=== PATIENT | male | born 1975 | race Caucasian/White ===

== ENCOUNTER 2024-09-21 07:19 | Emergency (ER) | payer SELFPAY ==
[2024-09-21 07:10] VITALS: BP 150/100; PULSE 104; RESP 18; TEMP 36.4; O2SAT 98
[2024-09-21 07:20] VITALS: BP 121/75; PULSE 97; RESP 20; O2SAT 100
--- NOTE | 2024-09-21 07:31 | ED.ALCOHOL ---
HPI - Alcohol General Chief Complaint: Alcohol Stated Complaint: ETOH PROBLEMS Source: patient and EMS Mode of arrival: EMS Limitations: no limitations History of Present Illness HPI narrative: 49 years old white male came to the ED by ambulance from home because been drinking too much. He denies other symptoms. Patient denies any suicidal or homicidal ideation. Patient requested to go home, is feeling okay, is telling me this was a mistake to come to the ED, Patient denies any fever, chills, nausea, vomiting, abdominal pain, chest pain, shortness of breath. Currently feeling much better and like to go home. Review of Systems Review of Systems: All systems reviewed & are unremarkable except as noted in HPI and below Exam Narrative: General appearance: Well-developed, well-nourished Skin: Normal color Head: Normocephalic, nontraumatic Eyes: Clear conjunctiva ENT: Oropharynx normal, ears normal, nose normal Neck: Supple, nontender Chest and respiratory: Airway patent, no respiratory distress, no accessory muscle use Heart: Regular rate/rhythm Abdomen: Soft, nontender, no organomegaly, quiet bowel sounds Vascular: Normal peripheral pulses, normal capillary refill. Musculoskeletal: Normal range of motion, nontender back Neurologic: Alert and oriented ?3, INDUSTRIAL MAINTENANCE INSTRUCTOR is normal as tested, no gross motor deficit MDM - Alcohol MDM Narrative Medical decision making narrative: Patient came to the ED because of history of alcoholism and would like to stop Vital signs are stable Physical examination showing that patient awake, alert oriented x4. Patient declined blood workup or imaging or further evaluation and would like to go home. Differential Diagnosis Differential diagnosis: Likely other Medical Records Medical records narrative: Alcoholism Lab Data 09/21/24 07:27 09/21/24 07:27 Labs: Lab Results 09/21/24 Range/Units 07:27 WBC Pending RBC Pending Hgb Pending Hct Pending MCV Pending MCH Pending MCHC Pending RDW Pending Plt Count Pending MPV Pending Immature Gran % (Auto) Pending Neut % (Auto) Pending Lymph % (Auto) Pending Troup % (Auto) Pending Eos % (Auto) Pending Baso % (Auto) Pending Lymph # (Auto) Pending Troup # (Auto) Pending Eos # (Auto) Pending Baso # (Auto) Pending Abs Immat Gran (auto) Pending Absolute Neuts (auto) Pending Absolute Nucleated RBC Pending Nucleated RBC % Pending Sodium Pending Potassium Pending Chloride Pending Carbon Dioxide Pending Anion Gap Pending BUN Pending Creatinine Pending Estim Creat Clear Calc Pending Estimated GFR Pending Glucose Pending Calcium Pending Total Bilirubin Pending AST Pending ALT Pending Alkaline Phosphatase Pending Total Protein Pending Albumin Pending TSH (Reflex) Pending Ethyl Alcohol Pending Critical Care Time Critical Care Time Critical Care Time: No Discharge Plan Discharge Clinical Impression: Alcoholism Patient Disposition: Home Condition: Stable Instructions: Alcohol Dependence (ED) Additional Instructions: Return if symptoms are worsening , call your family physician for appointment, take Tylenol as as needed for aches and pain, continue home medications. Patient Language: Maori Follow-up/Referrals: UNKNOWN,DOCTOR [Primary Care Provider] -
[2024-09-21 07:32] LABS: Basophils Absolute Auto 0.2 K/mm3 (0.0-0.1); Basophils Percent Auto 2.2 % (0.2-1.2); Eosinophils Absolute Auto 0.3 K/mm3 (0-0.3); Eosinophils Percent Auto 4.3 % (0-4.4); Hematocrit 47.8 % (42.0-52.0); Hemoglobin 16.2 g/dL (14.0-18.0); Immature Granulocyte Absolute 0.03 K/mm3 (0.00-0.031); Immature Granulocyte Percent A 0.4 % (0-0.5); Lymphocytes Absolute Auto 1.97 K/mm3 (0.9-3.2); Lymphocytes Percent Auto 29.3 % (18.3-44.2); Mean Corpuscular HGB Conc 33.9 g/dl (32-36); Mean Corpuscular Hemoglobin 30.7 pg (26-34); Mean Corpuscular Volume 90.5 fl (80-100); Mean Platelet Volume 8.9 fl (7.4-10.4); Monocytes Absolute Auto 0.5 K/mm3 (0.1-0.6); Neutrophils Absolute Auto 3.8 K/mm3 (1.3-6.7); Neutrophils Percent Auto 55.8 % (45.5-73.1); Platelet Count Result 357 k/mm3 (150-375); Red Blood Count 5.28 M/mm3 (4.6-6.20); Red Cell Distribution Width 16.5 % (11.5-14.5); White Blood Count 6.7 K/mm3 (4.5-10.0)
[2024-09-21 07:41] LABS: Alanine Aminotransferase 132 U/L (6-50); Albumin Level 4.3 g/dL (3.5-5.1); Alkaline Phosphatase 142 U/L (38-126); Anion Gap 14 mmol/L (4-12); Aspartate Amino Transferase 67 U/L (17-59); Bilirubin,Total 0.8 mg/dL (0.2-1.3); Blood Urea Nitrogen 9 mg/dL (9-20); Calcium 8.4 mg/dL (8.4-10.2); Carbon Dioxide 26 mmol/L (22-30); Chloride 101 mmol/L (98-107); Estimated CRCL calculation 111 ml/min; Estimated Glomerular Filt Rate > 60; Glucose 208 mg/dL (65-110); Potassium 3.2 mmol/L (3.4-5.0); Sodium 141 mmol/L (137-145)
--- OUTSIDE RECORDS SUMMARY | 2024-09-21 07:53 | XMS_ITS | Referral Summary ---
Author Organization [facility] Virtual Care Address [address] [place] [address] Phone Care Team Providers Care Telemetry Tech Name Role Phone Kenneth Mcduffie DO Primary Care Provider [phone] Allergies No known active allergies Medications pantoprazole DR (PROTONIX) 20 mg EC tablet Take 1 tablet (20 mg total) by mouth daily 30 tablet 3 Active chlordiazePOXIDE (LIBRIUM) 25 mg capsule Take 1 capsule (25 mg total) by mouth 3 (three) times a day as needed for withdrawal symptoms 9 capsule 3 Active ondansetron ODT (ZOFRAN-ODT) 4 mg disintegrating tablet Take 1 tablet (4 mg total) by mouth every 8 (eight) hours as needed for nausea or vomiting 20 tablet 3 Active Social History Tobacco Use Types Packs/Day Years Used Date Smoking Tobacco: Every Day Cigarettes Tobacco Cessation:Ready to Q uit: Not Asked; Counseling Given: Not Answered Personal Safety Answer Date Recorded Getting School Help Needed Not on file 07/28 Sex and Gender Information Value Date Recorded Sex Assigned at Not on file Legal Sex Male 2:33 AM CARVER HAND Gender Identity Not on file Sexual Orientation Not on file Last Filed Vital Signs Vital Sign Reading Time Taken Comments Blood Pressure 120/70 07/20/2022 8:00 PM CARVER HAND Pulse 97 07/20/2022 9:05 PM CARVER HAND Temperature 36.9 C (98.5 F) 07/20/2022 4:40 PM CARVER HAND Respiratory Rate 22 07/20/2022 8:45 PM CARVER HAND Oxygen Saturation 98% 07/20/2022 9:05 PM CARVER HAND Inhaled Oxygen Concentration - - Weight 93.9 kg (207 lb) 07/20/2022 4:40 PM CARVER HAND Height 175.3 cm (5' 9 ) 07/20/2022 4:40 PM CARVER HAND Body Mass Index 30.57 07/20/2022 4:40 PM CARVER HAND Plan of Treatment Not on file Insurance [employer] [facility] [employer] Care Teams Telemetry Tech Relationship Specialty Start Date End Date Kenneth Mcduffie DO PCP - General Family Medicine 07/20/22
--- OUTSIDE RECORDS SUMMARY | 2024-09-21 07:53 | XMS_ITS | Encounter Summary ---
Author Organization [facility] Address [address] [place] [address] Care Team Providers Care Water Pollution Control Inspector Name Role Phone Kenneth Mcduffie DO Primary Care Provider + Encounter Details Date Type Department Care Team (Late st Contact Info) Description 01/30/2002 Outpatient Historical [facility] Medicine [address] [place] [phone] Gurinder Elkins DO [address] [facility] [place] [phone] Social History Tobacco Use Types Packs/Day Years Used Date Smoking Tobacco: Never Assessed Sex and Gender Information Value Date Recorded Sex Assigned at Not on file Legal Sex Male 2:42 AM CABLE MOCK UP ASSEMBLER Gender Identity Not on file Sexual Orientation Not on file documented as of this encounter Plan of Treatment Not on file documented as of this encounter Visit Diagnoses Not on filedocumented in this encounter Additional Health Concerns Infection Onset Date Last Indicated Resolved Time COVID-19 04/11/2020 04/11/2020 05/11/2020 1:16 AM CABLE MOCK UP ASSEMBLER documented as of this encounter Care Teams Water Pollution Control Inspector Relationship Specialty [place] [address] [place] [address] PCP - General Family Practice 12/01/22 documented as of this encounter
--- OUTSIDE RECORDS SUMMARY | 2024-09-21 07:53 | XMS_ITS | Clinical Summary ---
Author Organization [facility] Address [address] [place] [address] Care Team Providers Care Is/It Project Manager Name Role Phone Kenneth Mcduffie DO Primary Care Provider + Allergies No known active allergies Medications QUEtiapine (SEROquel) 50 mg tabletIndicatio ns:Anxiety state,Alcoholis m in recovery ([facility]) TK 1 T PO QHS. All future fills will be through psychiatry. Only use if on cpap. 30 Tablet 09/19/2017 Active vortioxetine (Trintellix) 10 mg tablet Take 5 mg by mouth daily. Active gabapentin (NEURONTIN) 300 mg capsule Take 300 mg by mouth 3 times daily. Active lisinopriL (PRINIVIL) 10 mg tablet Take 10 mg by mouth daily. Active pantoprazole (PROTONIX) 20 mg Tablet, Delayed Release (E.C.) Take 20 mg by mouth daily. 07/20/2022 Active Active Problems Problem Noted Date Diagnosed Date Depression 12/01/2022 Insomnia 12/01/2022 Anxiety 12/01/2022 HTN (hypertension) 12/01/2022 Acute alcoholic gastritis with hemorrhage 2022 No-show for appointment 12/23/2021 Major depressive disorder, recurrent episode, mi ld 05/24/2019 Benign hypertension 02/26/2015 Alcohol abuse 06/21/2014 NIRMALA on CPAP 12/31/2013 Tobacco use disorder 11/25/2011 Resolved Problems Problem Noted Date Diagnosed Date Resolved Date Alcoholism in recovery 06/19/201505/24 Alcoholism in remission 02/26/2015 01/0 01/2020 H/O alcohol abuse 06/27/2012 03/04/2014 Anxiety state 11/25/2011 05/24/2019 ETOH abuse 11/25/2011 06/27/2012 Immunizations Immunization Administration Dates Next Due (ADACEL/BOOSTRIX)(10 YR UP) TDAP VACCINE, 0.5ML, IM 12/25/2013 Influenza Seasonal Unspecifi ed Formulation IM 02/13/2017,03/16/2015,02/13/2014 Family History Medical History Relation Name Comments Healthy Brother Healthy Father Healthy Mother Heart Disease Mother Healthy Sister Relation Name Status Comments Brother Alive Father Alive Mother Alive Sister Alive Social History Tobacco Use Types Packs/Day Years Used Date Smoking Tobacco: Every Day Cigarettes 2 20 Tobacco Cessation:Ready to Q uit: No Alcohol Use Standard Drinks/Week Comments Never 0 (1 standard drink = 0.6 oz pure alcohol) sober x 5 months then relapse on new years Feeling Safe Answer Date Recorded Are you in a relationship wi th someone who hurts you emotionally and/or physically? 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 Gender Identity Not on file Sexual Orientation Not on file Occupation Industry Job Start Date Job End Date Not on file Not on file Not on file Not on file Last Filed Vital Signs Vital Sign Reading Time Taken Comments Blood Pressure 124/75 12/02/2022 4:25 AM CDT Pulse 82 12/02/2022 4:25 AM CDT Temperature 37 C (98.6 F) 12/02/2022 4:25 AM CDT Respiratory Rate 19 12/01/2022 5:18 PM CDT Oxygen Saturation 100% 12/02/2022 4:25 AM CDT Inhaled Oxygen Concentration - - Weight 93.9 kg (207 lb) 12/01/2022 10:52 AM CDT Height 175.3 cm (5' 9 ) 12/01/2022 10:52 AM CDT Body Mass Index 30.57 12/01/2022 10:52 AM CDT Plan of Treatment Health Maintenance Due Date Last Done Comments HEPATITIS B VACCINES (1 of 3 - 19+ 3-dose series) 1993 COLORECTAL SCREENING 2019 Colorectal Cancer Screening 2019 FIT-DNA Q 3 years 2019 FIT/FOBT Q 1 year 2019 Flex Sig/CT Colonography Q 5 years 2019 INFLUENZA VACCINE (#1) 2023 7, 03/16/2015, 02/13/2014 DTAP/TDAP/TD VACCINES (2 - T d or Tdap) 12/26/2023 12/25/2013 ZOSTER VACCINE (1 of 2) 2024 Insurance [facility] [employer] [facility] [address] [facility] Advance Directives For more information, please contact: [phone] * Full Code (Latest Code Status on File) Date Activated Date Inactivated Comments 12/01/2022 2:55 PM 12/02/2022 11:15 AM * Full Code Date Activated Date Inactivated Comments 05/23/2019 1:47 PM 05/24/2019 3:13 PM Care Teams Is/It Project Manager Relationship Specialty [place] [address] [place] [address] PCP - General Family Practice 12/01/22
--- OUTSIDE RECORDS SUMMARY | 2024-09-21 07:53 | XMS_ITS | Clinical Summary ---
Author Organization [facility] Virtual Care Address [address] [place] [address] Phone Care Team Providers Care Non Ferrous Material Handler Name Role Phone Kenneth Mcduffie DO Primary Care Provider [phone] Allergies No known active allergies Medications pantoprazole [...] nausea or vomiting 20 tablet 3 Active Medical History Medical History Date Comments Hypertension Social History Tobacco Use Types Packs/Day Years Used Date Smoking Tobacco: Every Day Cigarettes Tobacco Cessation:Ready to Q uit: Not Asked; Counseling Given: Not Answered Personal Safety Answer Date Recorded Getting School Help Needed Not on file 07/28 Sex and Gender Information Value Date Recorded Sex Assigned at Not on file Legal Sex Male 2:33 AM UNDERCAR SPECIALIST Gender Identity Not on file Sexual Orientation Not on file Obstetrics History Last Filed Vital Signs Vital Sign Reading Time Taken Comments Blood Pressure 120/70 07/20/2022 8:00 PM UNDERCAR SPECIALIST Pulse 97 07/20/2022 9:05 PM UNDERCAR SPECIALIST Temperature 36.9 C (98.5 F) 07/20/2022 4:40 PM UNDERCAR SPECIALIST Respiratory Rate 22 07/20/2022 8:45 PM UNDERCAR SPECIALIST Oxygen Saturation 98% 07/20/2022 9:05 PM UNDERCAR SPECIALIST Inhaled Oxygen Concentration - - Weight 93.9 kg (207 lb) 07/20/2022 4:40 PM UNDERCAR SPECIALIST Height 175.3 cm (5' 9 ) 07/20/2022 4:40 PM UNDERCAR SPECIALIST Body Mass Index 30.57 07/20/2022 4:40 PM UNDERCAR SPECIALIST Plan of Treatment Health Maintenance Due Date Last Done Comments Colon Cancer Screening-Colonoscopy 1974 Depression Screening 1974 Hepatitis C Screening 1974 Prostate Cancer Screening-PSA 1974 Hepatitis B Screening 1992 Regular Well Visit/Exam 18-64 1992 Pneumococcal vaccine <65 (1 of 2 - PCV) 1993 DTaP/Tdap/Td Vaccine (2 - Td or Tdap) 12/26/2023 12/25/2013 Covid-19 Vaccine (3 - 2023-2 5 season) 2024 01/16/2021, 12/10/2020 Zoster Vaccine (1 of 2) 2024 Influenza Vaccine (Season Ended) 2025 04/15/2020, 03/30/2019, 03/01/2018, Additional history exists Insurance [facility] CHOICE OOS [facility] CHOICE OOS [facility] Address: [facility] [id number] [place] [address] Care Teams Non Ferrous Material Handler Relationship Specialty Start Date End Date Kenneth Mcduffie DO PCP - General Family Medicine 07/20/22
--- OUTSIDE RECORDS SUMMARY | 2024-09-21 07:53 | XMS_ITS | Clinical Summary ---
Author Organization [facility] [employer] Address [address] [place] [address] Care Team Providers Care Surg Tech Name Role Phone Lilliam Mary Primary Care Provider [phone] Source Comments [facility] [employer],non-owned Affiliates and Associated Physician Practices is amultiple site organization consisting of ambulatory clinics and hospital sitesin [place], [place], [place] and [place]. This disclosure is being madepursuant to the Care Everywhere program and may not contain all information available regarding this patient. Last updated 18.[facility] [employer] Allergies No known active allergies Medications * Be aware that medications may not be up to date on this document. Alwaysverify current medications with the patient. lisinopril (PRINIVIL; ZESTRIL) 10 MG tablet Take 10 mg by mouth once daily Active buPROPion (WELLBUTRIN) 100 MG tablet Take 150 mg by mouth once daily Active vortioxetine (TRINTELLIX) 10 MG tablet Take 10 mg by mouth once daily Active folic acid (FOLVITE) 1 MG tablet Take 1 mg by mouth once daily Active thiamine (VITAMIN B-1) 100 MG tablet Take 100 mg by mouth once daily Active QUEtiapine (SEROQUEL) 50 MG tablet Take 50 mg by mouth at bedtime 1-2 tabs at bedtime Active pantoprazole EC (PROTONIX) 40 MG tablet Take 40 mg by mouth once daily Active Social History Tobacco Use Types Packs/Day Years Used Date Smoking Tobacco: Every Day Cigarettes Smokeless Tobacco: Never Tobacco Cessation:Ready to Q uit: Not Asked; Counseling Given: Not Answered Alcohol Use Standard Drinks/Week Comments Yes 0 (1 standard drink = 0.6 oz pure alcohol) aylin and coke daily, with shots of fire ball AUDIT-C Answer Date Recorded Q1: How often do you have a drink containing alcohol? 4 or more times a week 03/04/2024 Q2: How many drinks containi ng alcohol do you have on a typical day when you are drinking? 10 or more Q3: How often do you have si x or more drinks on one occasion? Daily or almost daily 03/04/2024 Sex and Gender Information Value Date Recorded Sex Assigned at Not on file Legal Sex Male 3:26 PM CDT Gender Identity Not on file Sexual Orientation Not on file Last Filed Vital Signs Vital Sign Reading Time Taken Comments Blood Pressure 139/95 03/04/2024 1:16 PM CDT Pulse 90 03/04/2024 1:16 PM CDT Temperature 36.7 C (98.1 F) 03/04/2024 10:50 AM CDT Respiratory Rate 8 03/04/2024 1:16 PM CDT Oxygen Saturation 98% 03/04/2024 1:16 PM CDT Inhaled Oxygen Concentration - - Weight 91.2 kg (201 lb) 02/27/2024 4:44 PM CDT Height 177.8 cm (5' 10 ) 02/27/2024 4:44 PM CDT Body Mass Index 28.84 02/27/2024 4:44 PM CDT Plan of Treatment Health Maintenance Due Date Last Done Comments COLOGUARD (AGES 45-75) - COLON CA SCREENING 1974 COLON MONITORING 1974 COLONOSCOPY - COLON CA SCREENING 1974 CT COLONOGRAPHY - COLON CA SCREENING 1974 Colorectal Cancer Screening 1974 FIT - COLON CA SCREENING 1974 FLEX SIG - COLON CA SCREENING 1974 HIV SCREENING 1989 HEPATITIS C SCREENING 03/21/1992 DTAP/TDAP/TD VACCINES (1 - Tdap) 1993 HEPATITIS B VACCINE (1 of 3 - 19+ 3-dose series) 1993 PNEUMOCOCCAL VACCINE 50+ (1 of 2 - PCV) 1993 COVID-19 VACCINE (3 - season) 2024 01/16/2021, 12/10/2020 ZOSTER VACCINE (1 of 2) 2024 DEPRESSION SCREENING 05/16/2024 INFLUENZA VACCINE (Season Ended) 2025 02/02/2022, 04/15/2020, 03/30/2019, Additional history exists LIPID TESTING 12/03/2027 12/02/2022 HIB VACCINE Aged Out No longer eligi ble based on patient's age to complete this topic HPV VACCINE Aged Out No longer eligi ble based on patient's age to complete this topic MENINGOCOCCAL (Group B) VACCINE SHARED DECISION-MAKING Aged Out No longer eligible based on patient's age to complete this topic MENINGOCOCCAL GROUPS A/C/Y/W VACCINE Aged Out No longer eligible based on patient's age to complete this topic Insurance [facility] [place] [id number] [place] [address] CARE Care Teams Surg Tech Relationship Specialty Start Date End Date Lilliam Mary APRN-THERAPY ASSISTANT [address] [facility] [address] [place], [place] [id number] PCP - General Nurse Practitioner 12/07/20
[2024-09-21 08:00] VITALS: BP 110/67; PULSE 74; RESP 16; O2SAT 99
[2024-09-21 08:12] LABS: Ethanol 345 mg/dL (<10); Thyroid Stimulating Hormone Reflex 0.906 uIU/mL (0.465-4.68)
== END 2024-09-21 08:00 | disposition home or self-care (01) ==
LOC: ANHED 07:50
PROVIDERS: Emergency Provider Emergency Medicine
DX: F10.20 Alcohol dependence, uncomplicated (principal)
CPT/HCPCS: 36415; 80053; 82077; 84443; 85025; 99283

== ENCOUNTER 2024-09-22 10:41 | Emergency (ER) | payer SELFPAY ==
--- NOTE | ~2024-09-22 | XR_ITS ---
EXAMINATION: XR chest 1V portable DATE: 09/22/2024 13:25 INDICATION: Alcohol intoxication. TECHNIQUE: frontal view of the chest was obtained. COMPARISON: None FINDINGS: The lungs are clear with no focal airspace opacities, pulmonary edema, pleural effusion or pneumothor ax. The cardiomediastinal silhouette is normal. Visualized bones and soft tissues are unremarkable. IMPRESSION: 1. No acute cardiopulmonary disease. Reviewed, dictated and finalized at location A.
--- OUTSIDE RECORDS SUMMARY | 2024-09-22 10:44 | XMS_ITS | Encounter Summary ---
Author Organization [facility] Address [address] [place] [address] Care Team Providers Care Poured Wall Foreman Name Role Phone Kenneth Mcduffie DO Primary Care Provider + Encounter Details Date Type Department Care Team (Late st Contact Info) Description 01/30/2002 Outpatient Historical [facility] Medicine [address] [place] [phone] Gurinder Elkins DO [address] [facility] [place] [phone] Social History Tobacco Use Types Packs/Day Years Used Date Smoking Tobacco: Never Assessed Sex and Gender Information Value Date Recorded Sex Assigned at Not on file Legal Sex Male 2:42 AM AIR PUMPER Gender Identity Not on file Sexual Orientation Not on file documented as of this encounter Plan of Treatment Not on file documented as of this encounter Visit Diagnoses Not on filedocumented in this encounter Additional Health Concerns Infection Onset Date Last Indicated Resolved Time COVID-19 04/11/2020 04/11/2020 05/11/2020 1:16 AM AIR PUMPER documented as of this encounter Care Teams Poured Wall Foreman Relationship Specialty [place] [address] [place] [address] PCP - General Family Practice 12/01/22 documented as of this encounter
--- OUTSIDE RECORDS SUMMARY | 2024-09-22 10:44 | XMS_ITS | Clinical Summary ---
Author Organization [facility] Virtual Care Address [address] [place] [address] Phone Care Team Providers Care Diesel Engine Assembler Name Role Phone Kenneth Mcduffie DO Primary Care Provider [phone] Allergies No known active allergies Medications pantoprazole [...] on file Legal Sex Male 2:33 AM REEL TENDER Gender Identity Not on file Sexual Orientation Not on file Obstetrics History Last Filed Vital Signs Vital Sign Reading Time Taken Comments Blood Pressure 120/70 07/20/2022 8:00 PM REEL TENDER Pulse 97 07/20/2022 9:05 PM REEL TENDER Temperature 36.9 C (98.5 F) 07/20/2022 4:40 PM REEL TENDER Respiratory Rate 22 07/20/2022 8:45 PM REEL TENDER Oxygen Saturation 98% 07/20/2022 9:05 PM REEL TENDER Inhaled Oxygen Concentration - - Weight 93.9 kg (207 lb) 07/20/2022 4:40 PM REEL TENDER Height 175.3 cm (5' 9 ) 07/20/2022 4:40 PM REEL TENDER Body Mass Index 30.57 07/20/2022 4:40 PM REEL TENDER Plan of Treatment Health Maintenance Due Date [...] 04/15/2020, 03/30/2019, 03/01/2018, Additional history exists Insurance [facility] CHOICE OOS [facility] CHOICE OOS Care Teams Diesel Engine Assembler Relationship Specialty Start Date End Date Kenneth Mcduffie DO PCP - General Family Medicine 07/20/22
--- OUTSIDE RECORDS SUMMARY | 2024-09-22 10:44 | XMS_ITS | Clinical Summary ---
Author Organization [facility] Address [address] [place] [address] Care Team Providers Care Automation Clerk Name Role Phone Lilliam Mary Primary Care Provider [phone] Source Comments [facility],non-owned Affiliates and Associated Physician Practices is amultiple site organization consisting of ambulatory clinics and hospital sitesin [place], [place], [place] and [place]. This disclosure is being madepursuant to the Care Everywhere program and may not contain all information available regarding this patient. Last updated 18.[facility] Allergies No known active allergies Medications * [...] patient's age to complete this topic Insurance [facility] [place] [id number] [place] [address] CARE Care Teams Automation Clerk Relationship Specialty Start Date End Date Lilliam Mary APRN-CHANNEL MARKETING MANAGER [address] [facility] [address] [place], [place] [id number] PCP - General Nurse Practitioner 12/07/20
--- OUTSIDE RECORDS SUMMARY | 2024-09-22 10:44 | XMS_ITS | Referral Summary ---
Author Organization [facility] Virtual Care Address [address] [place] [address] Phone Care Team Providers Care Net Trainer Name Role Phone Kenneth Mcduffie DO Primary Care Provider [phone] Allergies No known active allergies Medications pantoprazole [...] on file Legal Sex Male 2:33 AM ANIMAL STUNNER Gender Identity Not on file Sexual Orientation Not on file Last Filed Vital Signs Vital Sign Reading Time Taken Comments Blood Pressure 120/70 07/20/2022 8:00 PM ANIMAL STUNNER Pulse 97 07/20/2022 9:05 PM ANIMAL STUNNER Temperature 36.9 C (98.5 F) 07/20/2022 4:40 PM ANIMAL STUNNER Respiratory Rate 22 07/20/2022 8:45 PM ANIMAL STUNNER Oxygen Saturation 98% 07/20/2022 9:05 PM ANIMAL STUNNER Inhaled Oxygen Concentration - - Weight 93.9 kg (207 lb) 07/20/2022 4:40 PM ANIMAL STUNNER Height 175.3 cm (5' 9 ) 07/20/2022 4:40 PM ANIMAL STUNNER Body Mass Index 30.57 07/20/2022 4:40 PM ANIMAL STUNNER Plan of Treatment Not on file Insurance [facility] [employer] O[employer] Care Teams Net Trainer Relationship Specialty Start Date End Date Kenneth Mcduffie DO PCP - General Family Medicine 07/20/22
--- OUTSIDE RECORDS SUMMARY | 2024-09-22 10:44 | XMS_ITS | Clinical Summary ---
Author Organization [facility] Address [address] [place] [address] Care Team Providers Care Reed Cleaner Name Role Phone Kenneth Mcduffie DO Primary Care Provider + Allergies No known active allergies Medications QUEtiapine (SEROquel) 50 mg tabletIndicatio ns:Anxiety state,Alcoholis m in recovery ([facility]) TK 1 T PO QHS. All future [...] on file Legal Sex Male 2:42 AM BARBER OR BEAUTY SHOP MANAGER Gender Identity Not on file Sexual Orientation [...] ZOSTER VACCINE (1 of 2) 2024 Insurance [facility] [employer] [facility] [employer] [facility] Advance Directives For more information, please contact: [phone] * Full Code (Latest Code Status on File) Date Activated Date Inactivated Comments 12/01/2022 2:55 PM 12/02/2022 11:15 AM * Full Code Date Activated Date Inactivated Comments 05/23/2019 1:47 PM 05/24/2019 3:13 PM Care Teams Reed Cleaner Relationship Specialty [place] [address] [place] [address] PCP - General Family Practice 12/01/22
--- NOTE | 2024-09-22 10:51 | PC.NURSE ---
Pt. states he has to use the restroom and will return to triage desk to receive vital signs when he is done.
[2024-09-22 10:56] VITALS: BP 105/56; PULSE 104; RESP 16; TEMP 36.7; O2SAT 100
--- OUTSIDE RECORDS SUMMARY | 2024-09-22 12:59 | XMS_ITS | Encounter Summary ---
Author Organization [facility] Address 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
--- OUTSIDE RECORDS SUMMARY | 2024-09-22 12:59 | XMS_ITS | Clinical Summary ---
Author Organization [facility] [employer] Address [address] [place] [address] Care Team Providers Care Bomb Technician Name Role Phone Lilliam Mary Primary Care Provider [phone] Source Comments [facility],non-owned Affiliates and Associated Physician Practices is amultiple site organization consisting of ambulatory clinics and hospital sitesin [place], [place], [place] and [place]. This disclosure is being madepursuant to the Care Everywhere program and may not contain all information available regarding this patient. Last updated 18.[facility] [employer] Allergies No known active allergies Medications * [...] patient's age to complete this topic Insurance [facility] [place] [id number] [place] [address] CARE Care Teams Bomb Technician Relationship Specialty Start Date End Date Lilliam Mary APRN-WARPER FIXER [address] [place], [place] [id number] PCP - General Nurse Practitioner 12/07/20
--- OUTSIDE RECORDS SUMMARY | 2024-09-22 13:00 | XMS_ITS | Clinical Summary ---
Author Organization [employer] Address [address] [place] [address] Care Team Providers Care Plant Ecologist Name Role Phone Kenneth Mcduffie DO Primary Care Provider + Allergies No known active allergies Medications QUEtiapine (SEROquel) 50 mg tabletIndicatio ns:Anxiety state,Alcoholis m in recovery ([facility]) TK 1 T PO QHS. 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 Gender Identity Not on file Sexual Orientation [...] ZOSTER VACCINE (1 of 2) 2024 Insurance [facility] [employer] [facility] [employer] Overnight [facility]ICE [facility] Advance Directives For more information, please contact: [phone] * Full Code (Latest Code Status on File) Date Activated Date Inactivated Comments 12/01/2022 2:55 PM 12/02/2022 11:15 AM * Full Code Date Activated Date Inactivated Comments 05/23/2019 1:47 PM 05/24/2019 3:13 PM Care Teams Plant Ecologist Relationship Specialty [place] [address] [place] [address] PCP - General Family Practice 12/01/22
--- OUTSIDE RECORDS SUMMARY | 2024-09-22 13:00 | XMS_ITS | Clinical Summary ---
Author Organization [facility] Address [address] [place] [address] Phone Care Team Providers Care Assistant Store Manager Name Role Phone Kenneth Mcduffie DO Primary Care Provider Allergies No known active allergies Medications pantoprazole [...] on file Legal Sex Male 2:33 AM CROWN PRESSER Gender Identity Not on file Sexual Orientation Not on file Obstetrics History Last Filed Vital Signs Vital Sign Reading Time Taken Comments Blood Pressure 120/70 07/20/2022 8:00 PM CROWN PRESSER Pulse 97 07/20/2022 9:05 PM CROWN PRESSER Temperature 36.9 C (98.5 F) 07/20/2022 4:40 PM CROWN PRESSER Respiratory Rate 22 07/20/2022 8:45 PM CROWN PRESSER Oxygen Saturation 98% 07/20/2022 9:05 PM CROWN PRESSER Inhaled Oxygen Concentration - - Weight 93.9 kg (207 lb) 07/20/2022 4:40 PM CROWN PRESSER Height 175.3 cm (5' 9 ) 07/20/2022 4:40 PM CROWN PRESSER Body Mass Index 30.57 07/20/2022 4:40 PM CROWN PRESSER Plan of Treatment Health Maintenance Due Date [...] 04/15/2020, 03/30/2019, 03/01/2018, Additional history exists Insurance [facility] CHOICE OOS BLUE [facility] CHOICE OOS [facility] Address: [facility] [id number] [place] [address] Care Teams Assistant Store Manager Relationship Specialty Start Date End Date Kenneth Mcduffie DO PCP - General Family Medicine 07/20/22
--- OUTSIDE RECORDS SUMMARY | 2024-09-22 13:00 | XMS_ITS | Referral Summary ---
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 Gender Identity Not on file Sexual Orientation Not on file Last Filed Vital Signs Vital Sign Reading Time Taken Comments Blood Pressure 120/70 07/20/2022 8:00 PM MOBILE LOUNGE DRIVER OR OPERATOR Pulse 97 07/20/2022 9:05 PM MOBILE LOUNGE DRIVER OR OPERATOR Temperature 36.9 C (98.5 F) 07/20/2022 4:40 PM MOBILE LOUNGE DRIVER OR OPERATOR Respiratory Rate 22 07/20/2022 8:45 PM MOBILE LOUNGE DRIVER OR OPERATOR Oxygen Saturation 98% 07/20/2022 9:05 PM MOBILE LOUNGE DRIVER OR OPERATOR Inhaled Oxygen Concentration - - Weight 93.9 kg (207 lb) 07/20/2022 4:40 PM MOBILE LOUNGE DRIVER OR OPERATOR Height 175.3 cm (5' 9 ) 07/20/2022 4:40 PM MOBILE LOUNGE DRIVER OR OPERATOR Body Mass Index 30.57 07/20/2022 4:40 PM MOBILE LOUNGE DRIVER OR OPERATOR Plan of Treatment Not on file Insurance [employer] [facility] [employer] OOS [employer] OOS Care Teams Indirect Fire Infantryman Relationship Specialty Start Date End Date Kenneth Mcduffie DO PCP - General Family Medicine 07/20/22
--- NOTE | 2024-09-22 13:11 | ECG_ITS ---
Test Date: 2024-09-22 13:39:52 Measurements Intervals [place] Rate: 78 P: 34 DE: 157 QRS: 14 QRSD: 109 T: 60 QT: 372 QTc: 424 Interpretive Statements SINUS RHYTHM LOW QRS VOLTAGE IN EXTREMITY LEADS [QRS DEFLECTION < 0.5 mV IN LIMB LEADS] ANTEROSEPTAL MYOCARDIAL INFARCTION , OF INDETERMINATE AGE [40+ ms Q WAVE IN V1-V4] No previous ECG available for comparison Electronically Signed On 09-22-2024 15:33:53 CDT by Ruth Loja M.D.
--- NOTE | 2024-09-22 13:11 | ED.ALCOHOL ---
HPI - Alcohol General Chief Complaint: Alcohol Stated Complaint: alcohol withdrawal Time Seen by Provider: 09/22/24 12:08 Source: patient Mode of arrival: ambulatory Limitations: no limitations History of Present Illness HPI narrative: 49 YEARS OLD WHITE MALE CAME FROM HOME BY AMBULANCE TELLING ME THAT HE DOES NOT WANNA . PATIENT BEEN DRINKING HEAVILY OVER THE LAST 9 DAYS, WAS IN OUR EMERGENCY ROOM YESTERDAY AND WAS DISCHARGE, THE BEEN DRINKING SINCE ARRIVED HOME UNTIL THIS MORNING. PATIENT WOULD LIKE TO GET HELP FOR DETOXICATION. PATIENT DENIES ANY SUICIDAL OR HOMICIDAL IDEATION. PATIENT IS TELLING THAT HE LIVES ALONE, NO FAMILY, NO FRIENDS. PATIENT REQUESTING TO EAT AND DRINK FLUID Related Data Allergies Allergy/AdvReac Type Severity Reaction Status Date / Time No Known Allergies Allergy Verified 09/22/24 10:43 Review of Systems Review of Systems: All systems reviewed & are unremarkable except as noted in HPI and below Exam Narrative: GENERAL APPEARANCE: WELL-DEVELOPED, WELL-NOURISHED SKIN: NORMAL COLOR HEAD: NORMOCEPHALIC, NONTRAUMATIC EYES: CLEAR CONJUNCTIVA ENT: OROPHARYNX NORMAL, EARS NORMAL, NOSE NORMAL NECK: SUPPLE, NONTENDER CHEST AND RESPIRATORY: AIRWAY PATENT, NO RESPIRATORY DISTRESS, NO ACCESSORY MUSCLE USE HEART: REGULAR RATE/RHYTHM ABDOMEN: SOFT, NONTENDER, NO ORGANOMEGALY, QUIET BOWEL SOUNDS VASCULAR: NORMAL PERIPHERAL PULSES, NORMAL CAPILLARY REFILL. MUSCULOSKELETAL: NORMAL RANGE OF MOTION, NONTENDER BACK NEUROLOGIC: ALERT AND ORIENTED ?3, BREASTFEEDING PROGRAM COORDINATOR IS NORMAL TESTED, NO GROSS MOTOR DEFICIT Course Vital Signs Vital signs: Vital Signs Temperature 36.7 C 09/22/24 10:56 Pulse Rate 104 H 09/22/24 10:56 Respiratory Rate 16 09/22/24 10:56 Blood Pressure 105/56 L 09/22/24 10:56 Pulse Oximetry 100 09/22/24 10:56 Temperature 36.7 C 09/22/24 10:56 Pulse Rate 99 09/22/24 14:20 Respiratory Rate 19 09/22/24 14:20 Blood Pressure 143/79 H 09/22/24 14:20 Pulse Oximetry 97 09/22/24 14:20 MDM - Alcohol MDM Narrative Medical decision making narrative: PATIENT BEEN DRINKING HEAVILY LATELY, CAME TO THE ED LOOKING FOR HELP TO GET THE TOX. HIS NOT SUICIDAL OR HOMICIDAL LIVES ALONE, FEELING LONELY, NO FAMILY OR FRIENDS. VITAL SIGNS ARE STABLE PHYSICAL EXAMINATION SHOWING PATIENT, AWAKE, ALERT ORIENTED X4, LOOKS DEPRESSED, OTHERWISE INSIGNIFICANT DIFFERENTIAL DIAGNOSIS INCLUDE ALCOHOLISM, DEPRESSION, ELECTROLYTE IMBALANCE, DEHYDRATION,. BLOOD WORKUP TODAY INCLUDES CBC, CMP, ALCOHOL LEVEL, AMMONIA LEVEL, SHOWED URINALYSIS SHOWED URINE DRUG SCREEN SHOWED CHEST X-RAY SHOWED EKG SHOWED Differential Diagnosis Differential diagnosis: Likely other ( ABOVE) Lab Data 09/22/24 13:30 09/22/24 13:30 Labs: Lab Results 09/22/24 09/22/24 Range/Units 13:30 14:03 WBC 7.0 (4.5-10.0) K/mm3 RBC 5.20 (4.6-6.20) M/mm3 Hgb 15.9 (14.0-18.0) g/dL Hct 46.8 (42.0-52.0) % MCV 90.0 (80-100) fl MCH 30.6 (26-34) pg MCHC 34.0 (32-36) g/dl RDW 16.6 H (11.5-14.5) % Plt Count 319 (150-375) k/mm3 MPV 8.8 (7.4-10.4) fl Immature Gran % (Auto) 0.1 (0-0.5) % Neut % (Auto) 51.3 (45.5-73.1) % Lymph % (Auto) 37.0 (18.3-44.2) % Gooding % (Auto) 6.1 (2.6-8.5) % Eos % (Auto) 3.8 (0-4.4) % Baso % (Auto) 1.7 H (0.2-1.2) % Lymph # (Auto) 2.60 (0.9-3.2) K/mm3 Gooding # (Auto) 0.4 (0.1-0.6) K/mm3 Eos # (Auto) 0.3 (0-0.3) K/mm3 Baso # (Auto) 0.1 (0.0-0.1) K/mm3 Abs Immat Gran (auto) 0.01 (0.00-0.031) K/mm3 Absolute Neuts (auto) 3.6 (1.3-6.7) K/mm3 Absolute Nucleated RBC 0.000 (0.0-0.012) K/mm3 Nucleated RBC % 0.0 (0.0-0.2) % PT 13.3 (11.1-14.7) Seconds INR 1.0 Sodium 145 (137-145) mmol/L Potassium 3.6 (3.4-5.0) mmol/L Chloride 105 (98-107) mmol/L Carbon Dioxide 29 (22-30) mmol/L Anion Gap 11 (4-12) mmol/L BUN 6 L (9-20) mg/dL Creatinine 0.74 (0.7-1.3) mg/dL Estim Creat Clear Calc 107 ml/min Estimated GFR > 60 (59 - ) Glucose 97 (65-110) mg/dL Calcium 8.2 L (8.4-10.2) mg/dL Total Bilirubin 0.9 (0.2-1.3) mg/dL AST 69 H (17-59) U/L ALT 106 H (6-50) U/L Alkaline Phosphatase 133 H (38-126) U/L Ammonia 12 (9-30) umol/L Total Creatine Kinase 72 (55-170) U/L Total Protein 7.0 (6.3-8.2) g/dL Albumin 4.0 (3.5-5.1) g/dL Ethyl Alcohol Pending Imaging Data Radiologist's impression: ITS Impressions Chest X-Ray 09/22/24 13:36 IMPRESSION: 1. No acute cardiopulmonary disease. Discharge Plan Discharge Clinical Impression: Alcoholic Patient Disposition: Elopement After Seen by Prov Patient Language: Croatian Follow-up/Referrals: PHYSICIAN NOT ON STAFF,NONSTAFF [Primary Care Provider] -
[2024-09-22 13:37] LABS: Basophils Absolute Auto 0.1 K/mm3 (0.0-0.1); Basophils Percent Auto 1.7 % (0.2-1.2); Eosinophils Absolute Auto 0.3 K/mm3 (0-0.3); Eosinophils Percent Auto 3.8 % (0-4.4); Hematocrit 46.8 % (42.0-52.0); Hemoglobin 15.9 g/dL (14.0-18.0); Immature Granulocyte Absolute 0.01 K/mm3 (0.00-0.031); Immature Granulocyte Percent A 0.1 % (0-0.5); Mean Corpuscular Hemoglobin 30.6 pg (26-34); Mean Platelet Volume 8.8 fl (7.4-10.4); Monocytes Absolute Auto 0.4 K/mm3 (0.1-0.6); Monocytes Percent Auto 6.1 % (2.6-8.5); Neutrophils Absolute Auto 3.6 K/mm3 (1.3-6.7); Neutrophils Percent Auto 51.3 % (45.5-73.1); Platelet Count Result 319 k/mm3 (150-375); Red Cell Distribution Width 16.6 % (11.5-14.5)
[2024-09-22 13:45] LABS: Alanine Aminotransferase 106 U/L (6-50); Alkaline Phosphatase 133 U/L (38-126); Anion Gap 11 mmol/L (4-12); Aspartate Amino Transferase 69 U/L (17-59); Bilirubin,Total 0.9 mg/dL (0.2-1.3); Blood Urea Nitrogen 6 mg/dL (9-20); Calcium 8.2 mg/dL (8.4-10.2); Carbon Dioxide 29 mmol/L (22-30); Chloride 105 mmol/L (98-107); Creatine Kinase 72 U/L (55-170); Estimated CRCL calculation 107 ml/min; Estimated Glomerular Filt Rate > 60; Glucose 97 mg/dL (65-110); Potassium 3.6 mmol/L (3.4-5.0); Sodium 145 mmol/L (137-145)
[2024-09-22 13:48] LABS: Prothrombin Time 13.3 Seconds (11.1-14.7)
[2024-09-22] MEDS: THIAMINE HCL INJ 100 MG, FOLIC ACID INJ 1 MG, MAGNESIUM SULFATE INJ 1 GM, MULTIVITAMINS... IV CONT (14:06)
[2024-09-22 14:20] VITALS: BP 143/79; PULSE 99; RESP 19; O2SAT 97
[2024-09-22 14:22] LABS: Ammonia 12 umol/L (9-30)
--- NOTE | 2024-09-22 14:30 | PC.NURSE ---
Pt up to nurses station states I'm leaving, I'm going AMA, thanks for your help
[2024-09-22 14:37] LABS: Ethanol 341 mg/dL (<10)
--- NOTE | 2024-09-22 14:42 | PC.NURSE ---
Pt left AMA without signing AMA paper. Resources for alcohol rehab provided.
--- NOTE | 2024-09-22 14:45 | PC.NURSE ---
pt removed own IV. IV pump still running and fluids leaking onto the floor. Pt placed gown in linen bin. Pt ate 95% of his lunch tray. At end of IV tubing was the IV catheter, still intact. Pt left all resources that were given to him.
== END 2024-09-22 14:30 | disposition left against medical advice (07) ==
PROVIDERS: Emergency Provider Emergency Medicine
DX: F10.239 Alcohol dependence with withdrawal, unspecified (principal)
CPT/HCPCS: 36415; 71045; 80053; 82077; 82140; 82550; 85025; 85610; 93005; 96365; 99284; J3411; J3475; J7030

== ENCOUNTER 2024-09-24 18:24 | Emergency (ER) | payer SELFPAY ==
[2024-09-24 18:24] VITALS: BP 146/106; PULSE 120; RESP 24; O2SAT 99
--- OUTSIDE RECORDS SUMMARY | 2024-09-24 19:11 | XMS_ITS | Clinical Summary ---
Author Organization [employer] Address [address] [place] [address] Care Team Providers Care Lithographic Etcher Name Role Phone Kenneth Mcduffie DO Primary Care Provider + Allergies No known active allergies Medications QUEtiapine (SEROquel) 50 mg tabletIndicatio ns:Anxiety state,Alcoholis m in recovery ([facility]) TK 1 T PO QHS. 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 Gender Identity Not on file Sexual Orientation [...] ZOSTER VACCINE (1 of 2) 2024 Insurance [facility] [employer] [facility] [employer] [facility] Advance Directives For more information, please contact: [phone] * Full Code (Latest Code Status on File) Date Activated Date Inactivated Comments 12/01/2022 2:55 PM 12/02/2022 11:15 AM * Full Code Date Activated Date Inactivated Comments 05/23/2019 1:47 PM 05/24/2019 3:13 PM Care Teams Lithographic Etcher Relationship Specialty [place] [address] [place] [address] PCP - General Family Practice 12/01/22
--- OUTSIDE RECORDS SUMMARY | 2024-09-24 19:11 | XMS_ITS | Referral Summary ---
Author Organization [facility] Virtual Care Address [address] [place] [address] Phone Care Team Providers Care Arnp Name Role Phone Kenneth Mcduffie DO Primary Care Provider [phone] Allergies No known active allergies Medications pantoprazole [...] on file Legal Sex Male 2:33 AM MAPPING ANALYST Gender Identity Not on file Sexual Orientation Not on file Last Filed Vital Signs Vital Sign Reading Time Taken Comments Blood Pressure 120/70 07/20/2022 8:00 PM MAPPING ANALYST Pulse 97 07/20/2022 9:05 PM MAPPING ANALYST Temperature 36.9 C (98.5 F) 07/20/2022 4:40 PM MAPPING ANALYST Respiratory Rate 22 07/20/2022 8:45 PM MAPPING ANALYST Oxygen Saturation 98% 07/20/2022 9:05 PM MAPPING ANALYST Inhaled Oxygen Concentration - - Weight 93.9 kg (207 lb) 07/20/2022 4:40 PM MAPPING ANALYST Height 175.3 cm (5' 9 ) 07/20/2022 4:40 PM MAPPING ANALYST Body Mass Index 30.57 07/20/2022 4:40 PM MAPPING ANALYST Plan of Treatment Not on file Insurance [facility] [employer] OOS [employer] OOS Care Teams Arnp Relationship Specialty Start Date End Date Kenneth Mcduffie DO PCP - General Family Medicine 07/20/22
--- OUTSIDE RECORDS SUMMARY | 2024-09-24 19:11 | XMS_ITS | Clinical Summary ---
Author Organization [facility] Address [address] [place] [address] Care Team Providers Care Journeyman Pipe Welder Name Role Phone Lilliam Mary Primary Care Provider [phone] Source Comments [facility],non-owned Affiliates and Associated Physician Practices is amultiple site organization consisting of ambulatory clinics and hospital sitesin [place], [place], [place] and [place]. This disclosure is being madepursuant to the Care Everywhere program and may not contain all information available regarding this patient. Last updated 18.[facility] Allergies No known active allergies Medications * [...] patient's age to complete this topic Insurance [facility] [place] [id number] [place] [address] CARE Care Teams Journeyman Pipe Welder Relationship Specialty Start Date End Date Lilliam Mary APRN-TOP STOP ATTACHER [address] [place], [place] [id number] PCP - General Nurse Practitioner 12/07/20
--- OUTSIDE RECORDS SUMMARY | 2024-09-24 19:11 | XMS_ITS | Clinical Summary ---
Author Organization [facility] Virtual Care Address [address] [place] [address] Phone Care Team Providers Care Forest Aide Name Role Phone eKnneth Mcduffie DO Primary Care Provider [phone] Allergies No known active allergies Medications pantoprazole [...] on file Legal Sex Male 2:33 AM INTER COM INSTALLER Gender Identity Not on file Sexual Orientation Not on file Obstetrics History Last Filed Vital Signs Vital Sign Reading Time Taken Comments Blood Pressure 120/70 07/20/2022 8:00 PM INTER COM INSTALLER Pulse 97 07/20/2022 9:05 PM INTER COM INSTALLER Temperature 36.9 C (98.5 F) 07/20/2022 4:40 PM INTER COM INSTALLER Respiratory Rate 22 07/20/2022 8:45 PM INTER COM INSTALLER Oxygen Saturation 98% 07/20/2022 9:05 PM INTER COM INSTALLER Inhaled Oxygen Concentration - - Weight 93.9 kg (207 lb) 07/20/2022 4:40 PM INTER COM INSTALLER Height 175.3 cm (5' 9 ) 07/20/2022 4:40 PM INTER COM INSTALLER Body Mass Index 30.57 07/20/2022 4:40 PM INTER COM INSTALLER Plan of Treatment Health Maintenance Due Date [...] 04/15/2020, 03/30/2019, 03/01/2018, Additional history exists Insurance [facility] CHOICE OOS BLUE [facility] CHOICE OOS Care Teams Forest Aide Relationship Specialty Start Date End Date Kenneth Mcduffie DO PCP - General Family Medicine 07/20/22
--- OUTSIDE RECORDS SUMMARY | 2024-09-24 19:11 | XMS_ITS | Encounter Summary ---
Author Organization [facility] Address [address] [place] [address] Care Team Providers Care Plate Finisher Name Role Phone Kenneth Mcduffie DO Primary Care Provider + Encounter Details Date Type Department Care Team (Late st Contact Info) Description 01/30/2002 Outpatient Historical [facility] Medicine [address] [place] [id number] Gurinder Elkins DO [address] [facility] [place] [phone] Social History Tobacco Use Types Packs/Day Years Used Date Smoking Tobacco: Never Assessed Sex and Gender Information Value Date Recorded Sex Assigned at Not on file Legal Sex Male 2:42 AM CONSTRUCTION OPERATIONS MANAGER Gender Identity Not on file Sexual Orientation Not on file documented as of this encounter Plan of Treatment Not on file documented as of this encounter Visit Diagnoses Not on filedocumented in this encounter Additional Health Concerns Infection Onset Date Last Indicated Resolved Time COVID-19 04/11/2020 04/11/2020 05/11/2020 1:16 AM CONSTRUCTION OPERATIONS MANAGER documented as of this encounter Care Teams Plate Finisher Relationship Specialty Start [place] [address] [place] [address] PCP - General Family Practice 12/01/22 documented as of this encounter
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
[2024-09-24 19:21] VITALS: BP 110/72; PULSE 84; RESP 20; O2SAT 97
[2024-09-24 19:30] VITALS: BP 126/76; PULSE 86; RESP 16; TEMP 36.6; O2SAT 98
== END 2024-09-24 19:32 | disposition home or self-care (01) ==
PROVIDERS: Emergency Provider Emergency Medicine
DX: F43.11 Post-traumatic stress disorder, acute (principal); F10.229 Alcohol dependence with intoxication, unspecified; Y90.9 Presence of alcohol in blood, level not specified; Y37.90XA Military operations, unspecified, initial encounter
CPT/HCPCS: 99284

== ENCOUNTER 2024-09-25 13:51 | Emergency (ER) | payer SELFPAY ==
[2024-09-25 14:06] VITALS: BP 143/111; PULSE 115; RESP 20; TEMP 36.4; O2SAT 98
--- OUTSIDE RECORDS SUMMARY | 2024-09-25 14:11 | XMS_ITS | Clinical Summary ---
Author Organization [employer] Address [address] [place] [address] Care Team Providers Care Mill Set Up Name Role Phone Kenneth Mcduffie DO Primary Care Provider + Allergies No known active allergies Medications QUEtiapine (SEROquel) 50 mg tabletIndicatio ns:Anxiety state,Alcoholis m in recovery ([facility]) TK 1 T PO QHS. All [...] on file Legal Sex Male 2:42 AM INSTRUMENT REPAIRER Gender Identity Not on file Sexual Orientation [...] ZOSTER VACCINE (1 of 2) 2024 Insurance [facility] [employer] [facility] [employer] [facility] Advance Directives For more information, please contact: [phone] * Full Code (Latest Code Status on File) Date Activated Date Inactivated Comments 12/01/2022 2:55 PM 12/02/2022 11:15 AM * Full Code Date Activated Date Inactivated Comments 05/23/2019 1:47 PM 05/24/2019 3:13 PM Care Teams Mill Set Up Relationship Specialty Start [place] [address] [place] [address] PCP - General Family Practice 12/01/22
--- OUTSIDE RECORDS SUMMARY | 2024-09-25 14:11 | XMS_ITS | Clinical Summary ---
Author Organization [facility] Virtual Care Address [address] [place] [address] Phone Care Team Providers Care Hardware Installation Coordinator Name Role Phone Kenneth Mcduffie DO Primary Care Provider [phone] Allergies No known active allergies Medications pantoprazole [...] on file Legal Sex Male 2:33 AM WEIGH MACHINE OPERATOR Gender Identity Not on file Sexual Orientation Not on file Obstetrics History Last Filed Vital Signs Vital Sign Reading Time Taken Comments Blood Pressure 120/70 07/20/2022 8:00 PM WEIGH MACHINE OPERATOR Pulse 97 07/20/2022 9:05 PM WEIGH MACHINE OPERATOR Temperature 36.9 C (98.5 F) 07/20/2022 4:40 PM WEIGH MACHINE OPERATOR Respiratory Rate 22 07/20/2022 8:45 PM WEIGH MACHINE OPERATOR Oxygen Saturation 98% 07/20/2022 9:05 PM WEIGH MACHINE OPERATOR Inhaled Oxygen Concentration - - Weight 93.9 kg (207 lb) 07/20/2022 4:40 PM WEIGH MACHINE OPERATOR Height 175.3 cm (5' 9 ) 07/20/2022 4:40 PM WEIGH MACHINE OPERATOR Body Mass Index 30.57 07/20/2022 4:40 PM WEIGH MACHINE OPERATOR Plan of Treatment Health Maintenance Due Date [...] 04/15/2020, 03/30/2019, 03/01/2018, Additional history exists Insurance [facility] CHOICE OOS [employer] CHOICE OOS Care Teams Hardware Installation Coordinator Relationship Specialty Start Date End Date Kenneth Mcudffie DO PCP - General Family Medicine 07/20/22
--- OUTSIDE RECORDS SUMMARY | 2024-09-25 14:11 | XMS_ITS | Encounter Summary ---
Author Organization [facility] Address [address] [place] [address] Care Team Providers Care President And Chief Commercial Officer Name Role Phone Kenneth Mcduffie DO Primary Care Provider + Encounter Details Date Type Department Care Team (Late st Contact Info) Description 01/30/2002 Outpatient Historical [facility] Medicine [address] [place] [id number] Gurinder Elkins DO [address] [facility] [place] [phone] Social History Tobacco Use Types Packs/Day Years Used Date Smoking Tobacco: Never Assessed Sex and Gender Information Value Date Recorded Sex Assigned at Not on file Legal Sex Male 2:42 AM DUPLICATE MAKER Gender Identity Not on file Sexual Orientation Not on file documented as of this encounter Plan of Treatment Not on file documented as of this encounter Visit Diagnoses Not on filedocumented in this encounter Additional Health Concerns Infection Onset Date Last Indicated Resolved Time COVID-19 04/11/2020 04/11/2020 05/11/2020 1:16 AM DUPLICATE MAKER documented as of this encounter Care Teams President And Chief Commercial Officer Relationship Specialty [place] [address] [place] [address] PCP - General Family Practice 12/01/22 documented as of this encounter
--- OUTSIDE RECORDS SUMMARY | 2024-09-25 14:11 | XMS_ITS | Clinical Summary ---
Author Organization [facility] [employer] Address [address] [place] [address] Care Team Providers Care Clinical Data Coordinator Name Role Phone Lilliam Mary Primary Care Provider [phone] Source Comments [facility],non-owned Affiliates and Associated Physician Practices is amultiple site organization consisting of ambulatory clinics and hospital sitesin [place], [place], [place] and [place]. This disclosure is being madepursuant to the Care Everywhere program and may not contain all information available regarding this patient. Last updated 18.[facility] [employer] Allergies No known active allergies Medications [...] patient's age to complete this topic Insurance [facility] [place] [id number] [place] [address] CARE Care Teams Clinical Data Coordinator Relationship Specialty Start Date End Date Lilliam Mary APRN-MASH FILTER PRESS OPERATOR [address] [facility] [address] [place], [place] [id number] PCP - General Nurse Practitioner 12/07/20
--- OUTSIDE RECORDS SUMMARY | 2024-09-25 14:11 | XMS_ITS | Referral Summary ---
Author Organization [facility] Virtual Care Address [address] [place] [address] Phone Care Team Providers Care Rug Inspector Name Role Phone Kenneth Mcduffie DO Primary Care Provider [phone] Allergies No known active allergies Medications pantoprazole [...] on file Legal Sex Male 2:33 AM CLERK GENERAL OFFICE Gender Identity Not on file Sexual Orientation Not on file Last Filed Vital Signs Vital Sign Reading Time Taken Comments Blood Pressure 120/70 07/20/2022 8:00 PM CLERK GENERAL OFFICE Pulse 97 07/20/2022 9:05 PM CLERK GENERAL OFFICE Temperature 36.9 C (98.5 F) 07/20/2022 4:40 PM CLERK GENERAL OFFICE Respiratory Rate 22 07/20/2022 8:45 PM CLERK GENERAL OFFICE Oxygen Saturation 98% 07/20/2022 9:05 PM CLERK GENERAL OFFICE Inhaled Oxygen Concentration - - Weight 93.9 kg (207 lb) 07/20/2022 4:40 PM CLERK GENERAL OFFICE Height 175.3 cm (5' 9 ) 07/20/2022 4:40 PM CLERK GENERAL OFFICE Body Mass Index 30.57 07/20/2022 4:40 PM CLERK GENERAL OFFICE Plan of Treatment Not on file Insurance [employer] [facility] [employer] OOS [employer] O[employer] Care Teams Rug Inspector Relationship Specialty Start Date End Date Kenneth Mcduffie DO PCP - General Family Medicine 07/20/22
--- NOTE | 2024-09-25 14:20 | ECG_ITS ---
Test Date: 2024-09-25 15:52:29 Measurements Intervals [place] Rate: 103 P: 36 KS: 158 QRS: -1 QRSD: 108 T: 72 QT: 327 QTc: 429 Interpretive Statements SINUS TACHYCARDIA LOW QRS VOLTAGE IN EXTREMITY LEADS [QRS DEFLECTION < 0.5 mV IN LIMB LEADS] ANTEROSEPTAL MYOCARDIAL INFARCTION , OF INDETERMINATE AGE [40+ ms Q WAVE IN V1-V4] Compared to ECG 09/22/2024 13:39:52 NO SIGNIFICANT CHANGES Electronically Signed On 09-26-2024 11:46:02 CDT by Prieto Conteh M.D.
--- NOTE | 2024-09-25 14:20 | ED.ALCOHOL ---
HPI - Alcohol General Chief Complaint: Alcohol <Mary Beth Rivero PA-C - Last Filed: 09/25/24 15:30> Stated Complaint: ETOH dependence <Mary Beth Rivero PA-C - Last Filed: 09/25/24 15:30> Time Seen by Provider: 09/25/24 16:42 <Mary Beth Rivero PA-C - Last Filed: 09/25/24 15:30> Focused HPI: 49-year-old male with a reported history of alcohol abuse presents emergency department with concerns for alcohol withdrawal. States I do not Wanna . Patient states he has been on a 9 day Peters. States he has been drinking 2 fifths of fireball and vodka a day for the past 9 days. Prior to the 9 days he had not had anything to drink for few months. He reports prior history of alcohol abuse and several hospitalizations in the past for detox. He states he feels tired , anxious and has tremors. His last drink was at 9:00 a.m.. Denies drug use. GENERAL: Well-appearing, well-nourished, and in no acute distress. HEAD: Normocephalic, atraumatic. CHEST: Clear to auscultation. ?No respiratory distress. HEART: Regular rate and rhythm.? NEURO: ?Alert and oriented x3. minimal tremor with arms extended. No tongue fasciculations CIWA-Ar for Alcohol Withdrawal from [facility] on 09/25/2024 All calculations should be rechecked by clinician prior to use RESULT SUMMARY: 4 points Patients with scores <= typically do not require medication for withdrawal. INPUTS: Nausea/vomiting ?> 0 = No nausea and no vomiting Tremor ?> 1 = (More severe symptoms) Paroxysmal sweats ?> 0 = No sweat visible Anxiety ?> 3 = (More severe symptoms) Agitation ?> 0 = Normal activity Tactile disturbances ?> 0 = None Auditory disturbances ?> 0 = Not present Visual disturbances ?> 0 = Not present Headache/fullness in head ?> 0 = Not Present Orientation/clouding of sensorium ?> 0 = Oriented, can do serial additions Patient screened in triage and initial orders placed.? ?Additional care and disposition to be based upon?diagnostic testing and treatment. <Mary Beth Rivero PA-C - Last Filed: 09/25/24 15:30> History of Present Illness HPI narrative: Patient is a 49-year-old gentleman presents emergency department with chief complaint needs alcohol resources. The patient reports that he is not suicidal or homicidal reports that he last drank this afternoon patient states that he would like to do urine alcohol treatment reports he was called by the health social work professor this morning of emesis that were contacted again tomorrow. <Viet Trujillo MD - Last Filed: 09/26/24 07:07> Related Data Allergies/Adverse Reactions: Allergies Allergy/AdvReac Type Severity Reaction Status Date / Time No Known Allergies Allergy Verified 09/22/24 10:43 <Mary Beth Rivero PA-C - Last Filed: 09/25/24 15:30> Review of Systems Review of Systems: A 10 system review of systems was completed on the patient and is negative except for what is stated in the HPI. Nursing and ancillary documentation was reviewed. <Viet Trujillo MD - Last Filed: 09/26/24 07:07> Exam Narrative: GENERAL: Well-appearing, well-nourished, and in no acute distress. HEAD: Normocephalic, atraumatic. EYES: PERRLA and EOMI. ENT: Nares clear, no rhinorrhea or epistaxis. Mucous membranes moist. NECK: Supple. CHEST: Clear to auscultation. No respiratory distress. HEART: Regular rate and rhythm. No murmur heard. Normal peripheral pulses. ABDOMEN: Soft, nontender, nondistended, normal active bowel sounds. EXTREMITIES: Normal range of motion. No edema. SKIN: Warm, dry, no rash. NEURO: No focal deficits. Alert and oriented x3. PSYCH: Normal mood and affect. <Viet Trujillo MD - Last Filed: 09/26/24 07:07> Course Vital Signs Vital signs: Vital Signs Temperature 36.4 C 09/25/24 14:06 Pulse Rate 115 H 09/25/24 14:06 Respiratory Rate 20 09/25/24 14:06 Blood Pressure 143/111 H 09/25/24 14:06 Pulse Oximetry 98 09/25/24 14:06 Temperature 36.4 C 09/25/24 14:06 Pulse Rate 91 09/25/24 18:22 Respiratory Rate 14 09/25/24 18:22 Blood Pressure 139/97 H 09/25/24 18:22 Pulse Oximetry 99 09/25/24 18:22 <Mary Beth Rivero PA-C - Last Filed: 09/25/24 15:30> Vital Signs Temperature 36.4 C 09/25/24 14:06 Pulse Rate 115 H 09/25/24 14:06 Respiratory Rate 20 09/25/24 14:06 Blood Pressure 143/111 H 09/25/24 14:06 Pulse Oximetry 98 09/25/24 14:06 Temperature 36.4 C 09/25/24 14:06 Pulse Rate 91 09/25/24 18:22 Respiratory Rate 14 09/25/24 18:22 Blood Pressure 139/97 H 09/25/24 18:22 Pulse Oximetry 99 09/25/24 18:22 <Viet Trujillo MD - Last Filed: 09/26/24 07:07> MDM - Alcohol Lab Data Result diagrams: 09/25/24 14:54 09/25/24 14:54 <Mary Beth Rivero PA-C - Last Filed: 09/25/24 15:30> Labs: Lab Results 09/25/24 09/25/24 Range/Units 14:54 15:46 WBC 6.2 (4.5-10.0) K/mm3 RBC 5.34 (4.6-6.20) M/mm3 Hgb 16.4 (14.0-18.0) g/dL Hct 48.1 (42.0-52.0) % MCV 90.1 (80-100) fl MCH 30.7 (26-34) pg MCHC 34.1 (32-36) g/dl RDW 16.4 H (11.5-14.5) % Plt Count 255 (150-375) k/mm3 MPV 9.0 (7.4-10.4) fl Immature Gran % (Auto) 0.2 (0-0.5) % Neut % (Auto) 63.6 (45.5-73.1) % Lymph % (Auto) 26.3 (18.3-44.2) % [place] % (Auto) 5.8 (2.6-8.5) % Eos % (Auto) 2.6 (0-4.4) % Baso % (Auto) 1.5 H (0.2-1.2) % Lymph # (Auto) 1.62 (0.9-3.2) K/mm3 [place] # (Auto) 0.4 (0.1-0.6) K/mm3 Eos # (Auto) 0.2 (0-0.3) K/mm3 Baso # (Auto) 0.1 (0.0-0.1) K/mm3 Abs Immat Gran (auto) 0.01 (0.00-0.031) K/mm3 Absolute Neuts (auto) 3.9 (1.3-6.7) K/mm3 Absolute Nucleated RBC 0.000 (0.0-0.012) K/mm3 Nucleated RBC % 0.0 (0.0-0.2) % Sodium 143 (137-145) mmol/L Potassium 3.4 (3.4-5.0) mmol/L Chloride 101 (98-107) mmol/L Carbon Dioxide 25 (22-30) mmol/L Anion Gap 17 H (4-12) mmol/L BUN 8 L (9-20) mg/dL Creatinine 0.71 (0.7-1.3) mg/dL Estim Creat Clear Calc 117 ml/min Estimated GFR > 60 (59 - ) Glucose 109 (65-110) mg/dL POC Capillary Glucose 97 (65-105) mg/dl Calcium 8.6 (8.4-10.2) mg/dL Phosphorus 3.1 (2.5-4.5) mg/dL Magnesium 1.8 (1.6-2.3) mg/dL Total Bilirubin 1.4 H (0.2-1.3) mg/dL AST 82 H (17-59) U/L ALT 99 H (6-50) U/L Alkaline Phosphatase 144 H (38-126) U/L Total Protein 8.0 (6.3-8.2) g/dL Albumin 4.5 (3.5-5.1) g/dL Urine Opiates Screen Negative (Negative) Urine Methadone Screen Negative (Negative) Ur Barbiturates Screen Negative (Negative) Ur Phencyclidine Scrn Negative (Negative) Ur Amphetamine Screen Negative (Negative) U Benzodiazepines Scrn Negative (Negative) Urine Cocaine Screen Negative (Negative) U Cannabinoids Screen Negative (Negative) Ethyl Alcohol 384 H* (<10) mg/dL <Mary Beth Rivero PA-C - Last Filed: 09/25/24 15:30> Lab Results 09/25/24 09/25/24 Range/Units 14:54 15:46 WBC 6.2 (4.5-10.0) K/mm3 RBC 5.34 (4.6-6.20) M/mm3 Hgb 16.4 (14.0-18.0) g/dL Hct 48.1 (42.0-52.0) % MCV 90.1 (80-100) fl MCH 30.7 (26-34) pg MCHC 34.1 (32-36) g/dl RDW 16.4 H (11.5-14.5) % Plt Count 255 (150-375) k/mm3 MPV 9.0 (7.4-10.4) fl Immature Gran % (Auto) 0.2 (0-0.5) % Neut % (Auto) 63.6 (45.5-73.1) % Lymph % (Auto) 26.3 (18.3-44.2) % [place] % (Auto) 5.8 (2.6-8.5) % Eos % (Auto) 2.6 (0-4.4) % Baso % (Auto) 1.5 H (0.2-1.2) % Lymph # (Auto) 1.62 (0.9-3.2) K/mm3 [place] # (Auto) 0.4 (0.1-0.6) K/mm3 Eos # (Auto) 0.2 (0-0.3) K/mm3 Baso # (Auto) 0.1 (0.0-0.1) K/mm3 Abs Immat Gran (auto) 0.01 (0.00-0.031) K/mm3 Absolute Neuts (auto) 3.9 (1.3-6.7) K/mm3 Absolute Nucleated RBC 0.000 (0.0-0.012) K/mm3 Nucleated RBC % 0.0 (0.0-0.2) % Sodium 143 (137-145) mmol/L Potassium 3.4 (3.4-5.0) mmol/L Chloride 101 (98-107) mmol/L Carbon Dioxide 25 (22-30) mmol/L Anion Gap 17 H (4-12) mmol/L BUN 8 L (9-20) mg/dL Creatinine 0.71 (0.7-1.3) mg/dL Estim Creat Clear Calc 117 ml/min Estimated GFR > 60 (59 - ) Glucose 109 (65-110) mg/dL POC Capillary Glucose 97 (65-105) mg/dl Calcium 8.6 (8.4-10.2) mg/dL Phosphorus 3.1 (2.5-4.5) mg/dL Magnesium 1.8 (1.6-2.3) mg/dL Total Bilirubin 1.4 H (0.2-1.3) mg/dL AST 82 H (17-59) U/L ALT 99 H (6-50) U/L Alkaline Phosphatase 144 H (38-126) U/L Total Protein 8.0 (6.3-8.2) g/dL Albumin 4.5 (3.5-5.1) g/dL Urine Opiates Screen Negative (Negative) Urine Methadone Screen Negative (Negative) Ur Barbiturates Screen Negative (Negative) Ur Phencyclidine Scrn Negative (Negative) Ur Amphetamine Screen Negative (Negative) U Benzodiazepines Scrn Negative (Negative) Urine Cocaine Screen Negative (Negative) U Cannabinoids Screen Negative (Negative) Ethyl Alcohol 384 H* (<10) mg/dL <Viet Trujillo MD - Last Filed: 09/26/24 07:07> Discharge Plan Discharge Clinical Impression: Alcohol abuse <Mary Beth Rivero PA-C - Last Filed: 09/25/24 15:30> Patient Disposition: Home <Mary Beth Rivero PA-C - Last Filed: 09/25/24 15:30> Condition: Stable <Mary Beth Rivero PA-C - Last Filed: 09/25/24 15:30> Instructions: Abuse of Alcohol (ED) <Mary Beth Rivero PA-C - Last Filed: 09/25/24 15:30> Additional Instructions: Is recommended that you discontinue use of alcohol. Please follow-up with a local alcohol treatment facility <MaryB eth Rivero PA-C - Last Filed: 09/25/24 15:30> Patient Language: Macedonian <Mary Beth Rivero PA-C - Last Filed: 09/25/24 15:30> Follow-up/Referrals: [facility] [Outside] Juan Hewitt MD [Physician] - UNKNOWN,DOCTOR [Primary Care Provider] - <Mary Beth Rivero PA-C - Last Filed: 09/25/24 15:30> Time of Disposition: 18:11 <Mary Beth Rivero PA-C - Last Filed: 09/25/24 15:30> 18:11 <Viet Trujillo MD - Last Filed: 09/26/24 07:07>
[2024-09-25 15:01] LABS: Basophils Absolute Auto 0.1 K/mm3 (0.0-0.1); Basophils Percent Auto 1.5 % (0.2-1.2); Eosinophils Absolute Auto 0.2 K/mm3 (0-0.3); Eosinophils Percent Auto 2.6 % (0-4.4); Hematocrit 48.1 % (42.0-52.0); Hemoglobin 16.4 g/dL (14.0-18.0); Immature Granulocyte Absolute 0.01 K/mm3 (0.00-0.031); Immature Granulocyte Percent A 0.2 % (0-0.5); Lymphocytes Absolute Auto 1.62 K/mm3 (0.9-3.2); Lymphocytes Percent Auto 26.3 % (18.3-44.2); Mean Corpuscular HGB Conc 34.1 g/dl (32-36); Mean Corpuscular Hemoglobin 30.7 pg (26-34); Mean Corpuscular Volume 90.1 fl (80-100); Monocytes Absolute Auto 0.4 K/mm3 (0.1-0.6); Monocytes Percent Auto 5.8 % (2.6-8.5); Neutrophils Absolute Auto 3.9 K/mm3 (1.3-6.7); Neutrophils Percent Auto 63.6 % (45.5-73.1); Platelet Count Result 255 k/mm3 (150-375); Red Blood Count 5.34 M/mm3 (4.6-6.20); Red Cell Distribution Width 16.4 % (11.5-14.5); White Blood Count 6.2 K/mm3 (4.5-10.0)
[2024-09-25 15:13] LABS: Alanine Aminotransferase 99 U/L (6-50); Albumin Level 4.5 g/dL (3.5-5.1); Alkaline Phosphatase 144 U/L (38-126); Anion Gap 17 mmol/L (4-12); Aspartate Amino Transferase 82 U/L (17-59); Bilirubin,Total 1.4 mg/dL (0.2-1.3); Blood Urea Nitrogen 8 mg/dL (9-20); Calcium 8.6 mg/dL (8.4-10.2); Carbon Dioxide 25 mmol/L (22-30); Chloride 101 mmol/L (98-107); Estimated CRCL calculation 117 ml/min; Estimated Glomerular Filt Rate > 60; Glucose 109 mg/dL (65-110); Magnesium 1.8 mg/dL (1.6-2.3); Phosphorus 3.1 mg/dL (2.5-4.5); Potassium 3.4 mmol/L (3.4-5.0); Sodium 143 mmol/L (137-145)
[2024-09-25 15:21] LABS: Amphetamine Screen Urine Negative (Negative); Barbiturate Screen Urine Negative (Negative); Benzodiazepines Screen Urine Negative (Negative); Cannabinoid Screen Urine Negative (Negative); Cocaine Screen Urine Negative (Negative); Methadone Screen Urine Negative (Negative); Opiate Screen Urine Negative (Negative); Phencyclidine Screen Urine Negative (Negative)
[2024-09-25 15:33] LABS: Ethanol 384 mg/dL (<10)
[2024-09-25] MEDS: FOLIC ACID 1 MG/0.2 ML INJ IV PUSH (15:45)
[2024-09-25] MEDS: THIAMINE HCL 200 MG/2 ML VIAL 100 MG IV PUSH (15:54)
[2024-09-25] MEDS: diazePAM INJ (*CRX) 10 MG/2 ML SYRINGE 5 MG IV PUSH (15:54)
[2024-09-25 16:00] VITALS: BP 133/89; PULSE 93; RESP 18; O2SAT 96
[2024-09-25 16:05] LABS: Glucose Point of Care 97 mg/dl (65-105)
[2024-09-25 16:26] VITALS: PULSE 75; RESP 17
[2024-09-25 16:46] VITALS: BP 132/82; PULSE 75; RESP 16; O2SAT 96
[2024-09-25 18:22] VITALS: BP 139/97; PULSE 91; RESP 14; O2SAT 99
== END 2024-09-25 18:22 | disposition home or self-care (01) ==
PROVIDERS: Physician Assistant; Emergency Provider Emergency Medicine
DX: F10.129 Alcohol abuse with intoxication, unspecified (principal); Y90.8 Blood alcohol level of 240 mg/100 ml or more
CPT/HCPCS: 36415; 80053; 80307; 82077; 82948; 83735; 84100; 85025; 93005; 96374; 96375; 99284; J3360; J3411

== ENCOUNTER 2024-12-03 19:13 | Emergency (ER) | payer BC, SELFPAY ==
[2024-12-03 19:18] VITALS: BP 145/121; PULSE 121; RESP 16; TEMP 36.7; O2SAT 100
[2024-12-03 19:38] VITALS: PULSE 108
--- NOTE | 2024-12-03 19:39 | ECG_ITS ---
Test Date: 2024-12-03 19:41:02 Measurements Intervals [place] Rate: 95 P: 15 UT: 167 QRS: -13 QRSD: 106 T: 38 QT: 347 QTc: 437 Interpretive Statements SINUS RHYTHM ANTEROSEPTAL MYOCARDIAL INFARCTION , OF INDETERMINATE AGE [40+ ms Q WAVE IN V1-V4] Compared to ECG 09/25/2024 15:52:29 Sinus tachycardia no longer present Electronically Signed On 12-04-2024 16:35:44 CDT by Prieto Conteh M.D.
--- NOTE | 2024-12-03 19:39 | ED_ITS ---
HPI - Psych General Chief Complaint: Psychiatric Symptoms Stated Complaint: ETOH+ W/ SI Time Seen by Provider: 12/03/24 19:21 History of Present Illness HPI Narrative: 49-year-old male with a past medical history including alcohol abuse presenting to the emergency department with suicidal ideations and a relapse of alcohol. He states he was clean for last 2 months and has had previous detoxifications. He states he relapsed after a conflict with his girlfriend. Patient called 911 as he was feeling suicidal and wanted to end it all. On arrival to the emergency department patient is denying suicidal thoughts but does endorse significant mental trauma from PTSD being in the as well as from relapse of alcohol. He initially expressed desire to go home after arrival but became very tearful and admitted that he would like some help. Denies wanting to hurt anyone else and does not want to commit suicide. Endorses just alcohol use but no other substances. Has been drinking ?a shit ton over last few days but clinically sober on encounter. Denies any physical pain such as headache, vision changes, chest pain, back pain, abdominal pain. No nausea or vomiting. He is ambulatory with a steady gait. No history of psychiatric hospitalizations previously. He is awake alert oriented x4. Related Data Allergies Allergy/AdvReac Type Severity Reaction Status Date / Time No Known Allergies Allergy Verified 12/03/24 19:37 Review of Systems 2 Review of Systems: As reviewed above in HPI Exam 2 Narrative: GENERAL: Tearful affect, chronic occasionally throughout the encounter HEAD: [Normocephalic, atraumatic.] EYES: [PERRLA and EOMI.] ENT: Nares clear, no rhinorrhea or epistaxis. Mucous membranes moist. NECK: Supple. CHEST: [Clear to auscultation. No respiratory distress.] HEART: [Regular rate and rhythm]. No murmur heard. [Normal peripheral pulses.] ABDOMEN: [Soft, nondistended], [nontender], [No rigidity or guarding] EXTREMITIES: Normal range of motion. [No edema.] SKIN: Warm, dry, no rash. NEURO: [No focal deficits]. Alert and oriented [x3.] PSYCH: Tearful affect, occasionally chronic throughout the encounter, endorsed suicidality to 911 but denies it here in the emergency department. Denies homicidal ideation. Denies hallucinations. Course Vital Signs Vital signs: Vital Signs Temperature 36.7 C 12/03/24 19:18 Pulse Rate 121 H 12/03/24 19:18 Respiratory Rate 16 12/03/24 19:18 Blood Pressure 145/121 H 12/03/24 19:18 Pulse Oximetry 100 12/03/24 19:18 Oxygen Delivery Room Air 12/03/24 19:18 Temperature 36.7 C 12/04/24 01:46 Pulse Rate 107 H 12/04/24 01:46 Respiratory Rate 17 12/04/24 01:46 Blood Pressure 115/86 12/04/24 01:46 Pulse Oximetry 100 12/04/24 01:46 Oxygen Delivery Room Air 12/03/24 19:18 MDM - Psych MDM Narrative Medical decision making narrative: 49-year-old male with a past medical history including alcohol abuse presenting to the emergency department with suicidal ideations and a relapse of alcohol. He states he was clean for last 2 months and has had previous detoxifications. He states he relapsed after a conflict with his girlfriend. Patient called 911 as he was feeling suicidal and wanted to end it all. On arrival to the emergency department patient is denying suicidal thoughts but does endorse significant mental trauma from PTSD being in the as well as from relapse of alcohol. He initially expressed desire to go home after arrival but became very tearful and admitted that he would like some help. Denies wanting to hurt anyone else and does not want to commit suicide. Endorses just alcohol use but no other substances. Has been drinking ?a shit ton over last few days but clinically sober on encounter. Denies any physical pain such as headache, vision changes, chest pain, back pain, abdominal pain. No nausea or vomiting. He is ambulatory with a steady gait. No history of psychiatric hospitalizations previously. He is awake alert oriented x4. Patient is not in any acute physical distress but does have some mental distress and is crying throughout the encounter. Mildly tachycardic but normal blood pressure. Afebrile without any respiratory drive concerns or hypoxia. Unremarkable physical examination. Patient is remorseful about relapsing in his drinking habits and wants help. Previously endorse suicidality and now states he wants to live denies wanting to harm himself. Psychiatric clearance laboratory studies were obtained including alcohol level. Patient does agree to stay for medical clearance and psychiatric evaluation. Patient's alcohol level came back largely elevated. I discussed with him that he is intoxicated and we cannot do a psychiatric assessment until he is sober. Initially patient would like to leave but I discussed that he cannot leave until either he is clinically sober or he has a sober ride given our responsibilities to his safety. Initially patient became verbally agitated and p.r.n. medications were ordered but never provided. He agreed to stay the night. Patient re-evaluated after 11 hours in the emergency department and he is clinically sober, ambulating without any difficulties, denies any suicidal or homicidal ideation and wishes to go home and does not want any further interventions or evaluations here. We gave return precautions as well as resources and he was discharged. Medical Records Attestation: I reviewed the patient's medical records. Lab Data Attestation: I reviewed the patient's lab results. 12/03/24 19:53 12/03/24 19:53 Labs: Lab Results 12/03/24 12/03/24 Range/Units 19:53 20:52 WBC 7.2 (4.5-10.0) K/mm3 RBC 5.44 (4.6-6.20) M/mm3 Hgb 16.5 (14.0-18.0) g/dL Hct 47.2 (42.0-52.0) % MCV 86.8 (80-100) fl MCH 30.3 (26-34) pg MCHC 35.0 (32-36) g/dl RDW 14.1 (11.5-14.5) % Plt Count 319 (150-375) k/mm3 MPV 9.3 (7.4-10.4) fl Immature Gran % (Auto) 0.1 (0-0.5) % Neut % (Auto) 40.2 L (45.5-73.1) % Lymph % (Auto) 43.7 (18.3-44.2) % [place] % (Auto) 8.2 (2.6-8.5) % Eos % (Auto) 6.1 H (0-4.4) % Baso % (Auto) 1.7 H (0.2-1.2) % Lymph # (Auto) 3.13 (0.9-3.2) K/mm3 [place] # (Auto) 0.6 (0.1-0.6) K/mm3 Eos # (Auto) 0.4 H (0-0.3) K/mm3 Baso # (Auto) 0.1 (0.0-0.1) K/mm3 Abs Immat Gran (auto) 0.01 (0.00-0.031) K/mm3 Absolute Neuts (auto) 2.9 (1.3-6.7) K/mm3 Absolute Nucleated RBC 0.000 (0.0-0.012) K/mm3 Nucleated RBC % 0.0 (0.0-0.2) % Sodium 142 (137-145) mmol/L Potassium 3.5 (3.4-5.0) mmol/L Chloride 100 (98-107) mmol/L Carbon Dioxide 25 (22-30) mmol/L Anion Gap 17 H (4-12) mmol/L BUN 9 (9-20) mg/dL Creatinine 0.83 (0.7-1.3) mg/dL Estim Creat Clear Calc 90 ml/min Estimated GFR > 60 (59 - ) Glucose 106 (65-110) mg/dL Calcium 9.7 (8.4-10.2) mg/dL Total Bilirubin 1.1 (0.2-1.3) mg/dL AST 46 (17-59) U/L ALT 49 (6-50) U/L Alkaline Phosphatase 119 (38-126) U/L Total Protein 7.8 (6.3-8.2) g/dL Albumin 4.7 (3.5-5.1) g/dL TSH (Reflex) 0.839 (0.465-4.68) uIU/mL Urine Color Yellow (Yellow) Urine Appearance Clear (Clear) Urine pH 7.0 (5.0-9.0) Ur Specific [place] 1.007 (1.001-1.035) Urine Protein Trace (Negative) mg/dL Urine Glucose (UA) Negative (Negative) mg/dL Urine Ketones Negative (Negative) mg/dL Ur Blood (Man) Negative (Negative) Urine Nitrate Negative (Negative) Urine Bilirubin Negative (Negative) Urine Urobilinogen 1.0 (<2.0) mg/dL Leukocyte Esterase Rfl Negative (Negative) MEENU/UL Urine RBC 0-2 (0-2) /hpf Urine WBC 0-5 (0-3) /hpf Ur Squamous Epith Cells None seen (Few) /hpf Urine Bacteria None seen /hpf Urine Casts 0-2 Urine Opiates Screen Negative (Negative) Urine Methadone Screen Negative (Negative) Ur Barbiturates Screen Negative (Negative) Ur Phencyclidine Scrn Negative (Negative) Ur Amphetamine Screen Negative (Negative) U Benzodiazepines Scrn Negative (Negative) Urine Cocaine Screen Negative (Negative) U Cannabinoids Screen Negative (Negative) Ethyl Alcohol 375 H* (<10) mg/dL Influenza A (RT-PCR) Negative (Negative) Influenza B (RT-PCR) Negative (Negative) RSV (RT-PCR) Negative (Negative) SARS-CoV-2 RNA (RT-PCR) Positive A (Negative) Discharge Plan Discharge Clinical Impression: Alcoholic intoxication Patient Disposition: Home Condition: Stable Instructions: Antibiotic Form, Abuse of Alcohol (ED) Additional Instructions: Return if you experience any new or worsening symptoms, recurrence of your previous concerns. Will provide you alcohol rehab resources to discuss detox. Patient Language: Syrian Follow-up/Referrals: UNKNOWN,DOCTOR [Primary Care Provider] - Time of Disposition: 06:06
--- OUTSIDE RECORDS SUMMARY | 2024-12-03 20:02 | XMS_ITS | Referral Summary ---
Author Organization [facility] Virtual Care Address [address] [place] [address] Phone Care Team Providers Care Sap Portal Developer Name Role Phone Kenneth Mcduffie DO Primary Care Provider [phone] Allergies No known active allergies Medications pantoprazole [...] on file Legal Sex Male 2:33 AM SHIP ENGINES OPERATING ENGINEER Gender Identity Not on file Sexual Orientation Not on file Last Filed Vital Signs Vital Sign Reading Time Taken Comments Blood Pressure 120/70 07/20/2022 8:00 PM SHIP ENGINES OPERATING ENGINEER Pulse 97 07/20/2022 9:05 PM SHIP ENGINES OPERATING ENGINEER Temperature 36.9 C (98.5 F) 07/20/2022 4:40 PM SHIP ENGINES OPERATING ENGINEER Respiratory Rate 22 07/20/2022 8:45 PM SHIP ENGINES OPERATING ENGINEER Oxygen Saturation 98% 07/20/2022 9:05 PM SHIP ENGINES OPERATING ENGINEER Inhaled Oxygen Concentration - - Weight 93.9 kg (207 lb) 07/20/2022 4:40 PM SHIP ENGINES OPERATING ENGINEER Height 175.3 cm (5' 9) 07/20/2022 4:40 PM SHIP ENGINES OPERATING ENGINEER Body Mass Index 30.57 07/20/2022 4:40 PM SHIP ENGINES OPERATING ENGINEER Plan of Treatment Not on file Insurance [employer] [facility] Consult A Doctor OOS [employer] OOS Care Teams Sap Portal Developer Relationship Specialty Start Date End Date Kenneth Mcduffie DO PCP - General Family Medicine 07/20/22
--- OUTSIDE RECORDS SUMMARY | 2024-12-03 20:02 | XMS_ITS | Clinical Summary ---
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 All future [...] 5 months then relapse on new years Sex and Gender Information Value Date Recorded Sex Assigned at Not on file Legal Sex Male 2:42 AM EVP Gender Identity Not on file Sexual Orientation [...] 10:52 AM CDT Height 175.3 cm (5' 9) 12/01/2022 10:52 AM CDT Body Mass Index 30.57 12/01/2022 10:52 AM CDT Plan of Treatment Health Maintenance Due Date Last Done Comments HEPATITIS B VACCINES (1 of 3 - 19+ 3-dose series) 1993 COLORECTAL SCREENING 2019 Colorectal Cancer Screening 2019 FIT-DNA Q 3 years 2019 FIT/FOBT Q 1 year 2019 Flex Sig/CT Colonography Q 5 years 2019 DTAP/TDAP/TD VACCINES (2 - T d or Tdap) 12/26/2023 12/25/2013 ZOSTER VACCINE (1 of 2) 2024 INFLUENZA VACCINE (#1) 2024 7, 03/16/2015, 02/13/2014 Insurance [facility] CHOICE [facility] CHOICE Advance Directives For more information, please contact: [phone] * Full Code (Latest Code Status on File) Date Activated Date Inactivated Comments 12/01/2022 2:55 PM 12/02/2022 11:15 AM * Full Code Date Activated Date Inactivated Comments 05/23/2019 1:47 PM 05/24/2019 3:13 PM Care Teams Document Design Specialist Relationship Specialty Start Date [place] [address] [place] [address] PCP - General Family Practice 12/01/22
--- OUTSIDE RECORDS SUMMARY | 2024-12-03 20:02 | XMS_ITS | Clinical Summary ---
Author Organization [facility] Virtual Care Address [address] [place] [address] Phone Care Team Providers Care Farmworker Vegetable Name Role Phone Kenneth Mcduffie DO Primary Care Provider [phone] Allergies No known active allergies Medications pantoprazole [...] on file Legal Sex Male 2:33 AM CONTINUOUS MINING MACHINE COAL MINER Gender Identity Not on file Sexual Orientation Not on file Obstetrics History Last Filed Vital Signs Vital Sign Reading Time Taken Comments Blood Pressure 120/70 07/20/2022 8:00 PM CONTINUOUS MINING MACHINE COAL MINER Pulse 97 07/20/2022 9:05 PM CONTINUOUS MINING MACHINE COAL MINER Temperature 36.9 C (98.5 F) 07/20/2022 4:40 PM CONTINUOUS MINING MACHINE COAL MINER Respiratory Rate 22 07/20/2022 8:45 PM CONTINUOUS MINING MACHINE COAL MINER Oxygen Saturation 98% 07/20/2022 9:05 PM CONTINUOUS MINING MACHINE COAL MINER Inhaled Oxygen Concentration - - Weight 93.9 kg (207 lb) 07/20/2022 4:40 PM CONTINUOUS MINING MACHINE COAL MINER Height 175.3 cm (5' 9) 07/20/2022 4:40 PM CONTINUOUS MINING MACHINE COAL MINER Body Mass Index 30.57 07/20/2022 4:40 PM CONTINUOUS MINING MACHINE COAL MINER Plan of Treatment Health Maintenance Due Date [...] Vaccine (1 of 2) 2024 Influenza Vaccine (#1) 2025 , 03/30/2019, 03/01/2018, Additional history exists Insurance [facility] CHOICE OOS [facility] CHOICE OOS Care Teams Farmworker Vegetable Relationship Specialty Start Date End Date Kenneth Mcduffie DO PCP - General Family Medicine 07/20/22
--- OUTSIDE RECORDS SUMMARY | 2024-12-03 20:02 | XMS_ITS | Encounter Summary ---
Author Organization [facility] Address [address] [place] [address] Care Team Providers Care Water Purifier Operator Name Role Phone Kenneth Mcduffie DO Primary Care Provider + Encounter Details Date Type Department Care Team (Late st Contact Info) Description 01/30/2002 Outpatient Historical [facility] Medicine [address] [place] [phone] Gurinder Elkins DO [address] [facility] [place] [phone] Social History Tobacco Use Types Packs/Day Years Used Date Smoking Tobacco: Never Assessed Sex and Gender Information Value Date Recorded Sex Assigned at Not on file Legal Sex Male 2:42 AM 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 ENGINEER Gender Identity Not on file Sexual Orientation Not on file documented as of this encounter Plan of Treatment Not on file documented as of this encounter Visit Diagnoses Not on filedocumented in this encounter Additional Health Concerns Infection Onset Date Last Indicated Resolved Time COVID-19 04/11/2020 04/11/2020 05/11/2020 1:16 AM 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 ENGINEER documented as of this encounter Care Teams Water Purifier Operator Relationship Specialty [place] [address] [place] [address] PCP - General Family Practice 12/01/22 documented as of this encounter
--- OUTSIDE RECORDS SUMMARY | 2024-12-03 20:02 | XMS_ITS | Clinical Summary ---
Author Organization [facility] [employer] Address [address] [place] [address] Care Team Providers Care Construction Lineman Name Role Phone Lilliam Mary Primary Care Provider [phone] Source Comments [facility],non-owned Affiliates and Associated Physician Practices is amultiple site organization consisting of ambulatory clinics and hospital sitesin [place], [place], [place]. This disclosure is being madepursuant to the Care Everywhere program and may not contain all information available regarding this patient. Last updated 18.[facility] Allergies No known active allergies Medications * [...] 4:44 PM CDT Height 177.8 cm (5' 10) 02/27/2024 4:44 PM CDT Body Mass Index [...] 2) 2024 DEPRESSION SCREENING 05/16/2024 INFLUENZA VACCINE (#1) 2025 , 04/15/2020, 03/30/2019, Additional history exists LIPID TESTING [...] patient's age to complete this topic Insurance [facility] [place] [id number] [place] [address] CARE Care Teams Construction Lineman Relationship Specialty Start Date End Date Lilliam Mary APRN-BARK GRINDER [address] [facility] [address] [place], [place] [id number] PCP - General Nurse Practitioner 12/07/20
[2024-12-03 20:04] LABS: Hematocrit 47.2 % (42.0-52.0); Hemoglobin 16.5 g/dL (14.0-18.0); Immature Granulocyte Percent A 0.1 % (0-0.5); Lymphocytes Absolute Auto 3.13 K/mm3 (0.9-3.2); Mean Corpuscular HGB Conc 35.0 g/dl (32-36); Mean Corpuscular Hemoglobin 30.3 pg (26-34); Mean Corpuscular Volume 86.8 fl (80-100); Nucleated Red Blood Cells Absolute Auto 0.000 K/mm3 (0.0-0.012); Nucleated Red Blood Cells Perc 0.0 % (0.0-0.2); Platelet Count Result 319 k/mm3 (150-375); Red Blood Count 5.44 M/mm3 (4.6-6.20); White Blood Count 7.2 K/mm3 (4.5-10.0)
[2024-12-03 20:35] LABS: Alanine Aminotransferase 49 U/L (6-50); Albumin Level 4.7 g/dL (3.5-5.1); Alkaline Phosphatase 119 U/L (38-126); Anion Gap 17 mmol/L (4-12); Aspartate Amino Transferase 46 U/L (17-59); Bilirubin,Total 1.1 mg/dL (0.2-1.3); Blood Urea Nitrogen 9 mg/dL (9-20); Calcium 9.7 mg/dL (8.4-10.2); Carbon Dioxide 25 mmol/L (22-30); Chloride 100 mmol/L (98-107); Estimated CRCL calculation 90 ml/min; Estimated Glomerular Filt Rate > 60; Glucose 106 mg/dL (65-110); Potassium 3.5 mmol/L (3.4-5.0); Sodium 142 mmol/L (137-145); Total Protein 7.8 g/dL (6.3-8.2)
[2024-12-03 20:44] LABS: Influenza A QL RT-PCR Negative (Negative); Influenza B QL RT-PCR Negative (Negative); RSV RNA, RT-PCR Negative (Negative); SARS-CoV-2 RNA PCR Positive (Negative)
[2024-12-03 20:45] LABS: Thyroid Stimulating Hormone Reflex 0.839 uIU/mL (0.465-4.68)
[2024-12-03 21:05] LABS: Add Urine Microscopic? YES; Appearance Urine Clear (Clear); Glucose Urine UA Negative (Negative); Leukocyte Esterase Ur Negative LEU/UL (Negative); Nitrate Urine Negative (Negative); Non Pathogenic Casts 0-2; Specific Grav Ur 1.007 (1.001-1.035)
[2024-12-03 21:14] LABS: Cannabinoid Screen Urine Negative (Negative)
[2024-12-04 01:46] VITALS: BP 115/86; PULSE 107; RESP 17; TEMP 36.7; O2SAT 100
--- NOTE | 2024-12-04 02:45 | PC.NURSE ---
Pt had express desire to leave the ED before psychiatric examination when appropriate due to elevated ETOH. Per MD he was ok with the patient leaving in a sober ride back home. The patient proceeded to call himself a cab which per ER protocol he is unable to be discharged home from the ED in a cab. Pt then attempted to exit himself until redirected back to room by ED security and was informed by the MD and Nurse that he is unable to leave until he is sober himself or has a sober ride that is not a cab or bus due to safety reasons. Pt requested a more in depth explanation on the policy but was face down in the stretcher and seemed asleep when attempted to further educate on ER policies.
== END 2024-12-04 06:20 | disposition home or self-care (01) ==
PROVIDERS: Emergency Provider Student in an Organized Health Care Education/Training Program
DX: F10.129 Alcohol abuse with intoxication, unspecified (principal); Y90.8 Blood alcohol level of 240 mg/100 ml or more; Z20.822 Contact with and (suspected) exposure to COVID-19
CPT/HCPCS: 36415; 80053; 80307; 81001; 82077; 84443; 85025; 87637; 93005; 96372; 99284; J2359

== ENCOUNTER 2024-12-14 13:24 | Emergency (ER) | payer BC, SELFPAY ==
--- NOTE | ~2024-12-14 | CT_ITS ---
EXAMINATION: CT brain wo con DATE: 12/14/2024 14:55 INDICATION: head injury . TECHNIQUE: Computed tomography (CT) of the head was performed without intravenous contrast. The mA wa s adjusted according to patient size. Iterative reconstruction technique was employed. The dose-lengt h product was 681.00 mGy-cm. COMPARISON: None. FINDINGS: Small 2 mm thick hyperdense focus in the extra-axial space adjacent to the left anterior hemisphere, near the vertex. Thin collection in the extra-axial space of the left hemisphere more diffusely, near ly CSF density, measuring up to 3 mm. No acute intraparenchymal hemorrhage. No hydrocephalus, mass, or herniation. No acute ischemic infarct. Unremarkable dural venous sinus attenuation. No acute osseous abnormality. Left maxillary retention cyst/polyp, right middle ethmoid opacification, the remaining aerated spaces are clear. Mild atrophy and chronic white matter change. Atherosclerotic intracranial calcification. IMPRESSION: Tiny focus of acute small volume subdural hemorrhage over the left anterior hemisphere, measuring up to 2 mm in thickness. Small, thin, left hemispheric chronic subdural versus cystic hygroma, measuring up to 3 mm in thickne ss. Results reported telephonically to Dr. Jaimes by Dr. Araiza at 3:08 PM on . Reviewed, dictated and finalized at location K. IMPRESSION: Tiny focus of acute small volume subdural hemorrhage over the left anterior hem isphere, measuring up to 2 mm in thickness. Small, thin, left hemispheric chronic subdural versus cystic hygroma, measuring up to 3 mm in thickness. Results reported telephonically to Dr. Jaimes by Dr. Araiza at 3:08 PM on .
[2024-12-14 13:24] VITALS: BP 113/84; PULSE 77; RESP 14; TEMP 36.4; O2SAT 97
[2024-12-14 13:55] LABS: Hematocrit 26.8 % (42.0-52.0); Hemoglobin 9.9 g/dL (14.0-18.0); Immature Granulocyte Percent A 4.1 % (0-0.5); Lymphocytes Absolute Auto 1.27 K/mm3 (0.9-3.2); Mean Corpuscular HGB Conc 36.9 g/dl (32-36); Mean Corpuscular Hemoglobin 31.4 pg (26-34); Mean Corpuscular Volume 85.1 fl (80-100); Nucleated Red Blood Cells Absolute Auto 0.030 K/mm3 (0.0-0.012); Nucleated Red Blood Cells Perc 0.3 % (0.0-0.2); Platelet Count Result 222 k/mm3 (150-375); Red Blood Count 3.15 M/mm3 (4.6-6.20); White Blood Count 10.2 K/mm3 (4.5-10.0)
--- OUTSIDE RECORDS SUMMARY | 2024-12-14 14:51 | XMS_ITS | Referral Summary ---
Author Organization [facility] Virtual Care Address [address] [place] [address] Phone Care Team Providers Care Pinion Staker Name Role Phone Kenneth Mcduffie DO Primary [...] on file Legal Sex Male 2:33 AM THINNER SPRAYER Gender Identity Not on file Sexual Orientation Not on file Last Filed Vital Signs Vital Sign Reading Time Taken Comments Blood Pressure 120/70 07/20/2022 8:00 PM THINNER SPRAYER Pulse 97 07/20/2022 9:05 PM THINNER SPRAYER Temperature 36.9 C (98.5 F) 07/20/2022 4:40 PM THINNER SPRAYER Respiratory Rate 22 07/20/2022 8:45 PM THINNER SPRAYER Oxygen Saturation 98% 07/20/2022 9:05 PM THINNER SPRAYER Inhaled Oxygen Concentration - - Weight 93.9 kg (207 lb) 07/20/2022 4:40 PM THINNER SPRAYER Height 175.3 cm (5' 9) 07/20/2022 4:40 PM THINNER SPRAYER Body Mass Index 30.57 07/20/2022 4:40 PM THINNER SPRAYER Plan of Treatment Not on file Insurance [facility] [employer] OOS [employer] OOS Care Teams Pinion Staker Relationship Specialty Start Date End Date Kenneth Mcduffie DO PCP - General Family Medicine 07/20/22
--- OUTSIDE RECORDS SUMMARY | 2024-12-14 14:51 | XMS_ITS | Clinical Summary ---
Author Organization [facility] [employer] Address [address] [place] [address] Care Team Providers Care New Media Strategist Name Role Phone Lilliam Mary Primary Care Provider [phone] Source Comments [facility],non-owned Affiliates and Associated Physician Practices is amultiple site organization consisting of ambulatory clinics and hospital sitesin [place], [place], [place] and [place]. This disclosure is being madepursuant to the Care Everywhere program and may not contain all information available regarding this patient. Last updated 18.[facility] Allergies No known active allergies Medications * [...] patient's age to complete this topic Insurance [facility] [place] [id number] [place] [address] CARE Care Teams New Media Strategist Relationship Specialty Start Date End Date Lilliam Mary APRN-OUTPATIENT PHYSICAL THERAPIST ASSISTANT [address] [facility] [address] [place], [place] [id number] PCP - General Nurse Practitioner 12/07/20
--- OUTSIDE RECORDS SUMMARY | 2024-12-14 14:51 | XMS_ITS | Encounter Summary ---
Author Organization [facility] Address [address] [place] [address] Care Team Providers Care Associate Web Developer Name Role Phone Kenneth Mcduffie DO Primary Care Provider + Encounter Details Date Type Department Care Team (Late st Contact Info) Description 01/30/2002 Outpatient Historical [facility] Medicine [address] [place] [phone] Gurinder Elkins DO [address] [facility] [place] [phone] Social History Tobacco Use Types Packs/Day Years Used Date Smoking Tobacco: Never Assessed Sex and Gender Information Value Date Recorded Sex Assigned at Not on file Legal Sex Male 2:42 AM 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 CHAIRPERSON Gender Identity Not on file Sexual Orientation Not on file documented as of this encounter Plan of Treatment Not on file documented as of this encounter Visit Diagnoses Not on filedocumented in this encounter Additional Health Concerns Infection Onset Date Last Indicated Resolved Time COVID-19 04/11/2020 04/11/2020 05/11/2020 1:16 AM DEPARTMENT CHAIRPERSON documented as of this encounter Care Teams Associate Web Developer Relationship Specialty [place] [address] [place] [address] PCP - General Family Practice 12/01/22 documented as of this encounter
--- OUTSIDE RECORDS SUMMARY | 2024-12-14 14:51 | XMS_ITS | Clinical Summary ---
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 ([facility]) TK 1 T PO [...] on file Legal Sex Male 2:42 AM BUSINESS REPORTING DEVELOPER Gender Identity Not on file Sexual Orientation [...] VACCINE (#1) 2024 7, 03/16/2015, 02/13/2014 Insurance [facility] CHOICE [facility] CHO[facility] Advance Directives For more information, please contact: [phone] * Full Code (Latest Code Status on File) Date Activated Date Inactivated Comments 12/01/2022 2:55 PM 12/02/2022 11:15 AM * Full Code Date Activated Date Inactivated Comments 05/23/2019 1:47 PM 05/24/2019 3:13 PM Care Teams Promotions Assistant Sales Marketing Relationship Specialty Start [place] [address] [place] [address] PCP - General Family Practice 12/01/22
--- OUTSIDE RECORDS SUMMARY | 2024-12-14 14:51 | XMS_ITS | Clinical Summary ---
Author Organization [facility] Virtual Care Address [address] [place] [address] Phone Care Team Providers Care Medical Record Retrieval Specialist Name Role Phone Kenenth Mcduffie DO Primary Care Provider [phone] Allergies No known active allergies Medications pantoprazole [...] on file Legal Sex Male 2:33 AM ART EDITOR Gender Identity Not on file Sexual Orientation Not on file Obstetrics History Last Filed Vital Signs Vital Sign Reading Time Taken Comments Blood Pressure 120/70 07/20/2022 8:00 PM ART EDITOR Pulse 97 07/20/2022 9:05 PM ART EDITOR Temperature 36.9 C (98.5 F) 07/20/2022 4:40 PM ART EDITOR Respiratory Rate 22 07/20/2022 8:45 PM ART EDITOR Oxygen Saturation 98% 07/20/2022 9:05 PM ART EDITOR Inhaled Oxygen Concentration - - Weight 93.9 kg (207 lb) 07/20/2022 4:40 PM ART EDITOR Height 175.3 cm (5' 9) 07/20/2022 4:40 PM ART EDITOR Body Mass Index 30.57 07/20/2022 4:40 PM ART EDITOR Plan of Treatment Health Maintenance Due Date [...] , 03/30/2019, 03/01/2018, Additional history exists Insurance [facility] CHO[facility] OOS [facility] CHOICE OOS Care Teams Medical Record Retrieval Specialist Relationship Specialty Start Date End Date Kenneth Mcduffie DO PCP - General Family Medicine 07/20/22
--- NOTE | 2024-12-14 15:16 | ED_ITS ---
HPI - General Adult General Chief complaint: Alcohol Stated complaint: requests detox of etoh Time Seen by Provider: 12/14/24 14:38 History of Present Illness HPI narrative: 49-year-old male presents to the emergency department for evaluation for multiple head injuries while going through alcohol withdrawal. Patient states he stopped drinking alcohol on Tuesday. Patient states he has had nausea vomiting lightheaded and dizziness is had multiple ground level falls. Patient does have some facial abrasions. Related Data Allergies Allergy/AdvReac Type Severity Reaction Status Date / Time No Known Allergies Allergy Verified 12/14/24 13:32 Review of Systems 2 Review of Systems: All systems reviewed & are unremarkable except as noted in HPI and below Exam 2 Narrative: APPEARANCE: Ill-appearing HEAD: normocephalic, atraumatic. EYES: PERRLA/EOMI, conjunctivae clear. NOSE: Normal no drainage EARS:TMS clear with good light reflex. THROAT: Pharynx clear, no exudate. NECK: Supple. No adenopathy, no masses. RESPIRATORY: Airway patent, respirations nonlabored. Clear to auscultation bilaterally, no rales, rhonchi, wheezing. CARDIOVASCULAR: Regular rate and rhythm without murmurs rubs or gallops. ABDOMINAL: Soft, nontender, nondistended, normal bowel sounds MUSCULOSKELETAL: Moves all extremities. Strength/ROM intact, No edema, No calf tenderness. NEURO: Alert. Cranial nerves II through XII intact. Good gait. Good coordination SKIN: Facial abrasion Course Vital Signs Vital signs: Vital Signs Temperature 97.6 F 12/14/24 13:24 Pulse Rate 77 12/14/24 13:24 Respiratory Rate 14 12/14/24 13:24 Blood Pressure 113/84 12/14/24 13:24 Pulse Oximetry 97 12/14/24 13:24 Oxygen Delivery Room Air 12/14/24 13:24 Temperature 97.6 F 12/14/24 13:24 Pulse Rate 77 12/14/24 13:24 Respiratory Rate 14 12/14/24 13:24 Blood Pressure 113/84 12/14/24 13:24 Pulse Oximetry 97 12/14/24 13:24 Oxygen Delivery Room Air 12/14/24 13:24 Medical Decision Making [facility] Narrative Medical decision making narrative: 49-year-old male presenting to the emergency department for evaluation for alcohol detox, nausea vomiting and head injury. Patient's car afebrile but does have a leukocytosis of 10.2 and hemoglobin of 9.9 hemoglobin is less than his typical baseline. Head CT was concerning for acute and chronic subdural on the left. Patient is not on any blood thinners or anticoagulants. Case was discussed with the trauma team had [facility] and patient was accepted as a trauma transfer. Patient will be transferred by ALS. Patient was alert appropriate and neurologically intact at time of transfer. Critical Care Procedure Note Authorized and Performed by: Apollo Jaimes Total critical care time: Approximately 36 minutes Due to a high probability of clinically significant, life threatening deterioration, the patient required my highest level of preparedness to intervene emergently and I personally spent this critical care time directly and personally managing the patient. This critical care time included obtaining a history; examining the patient; pulse oximetry; ordering and review of studies; arranging urgent treatment with development of a management plan; evaluation of patient's response to treatment; frequent reassessment; and, discussions with other providers. This critical care time was performed to assess and manage the high probability of imminent, life-threatening deterioration that could result in multi-organ failure. It was exclusive of separately billable procedures and treating other patients and teaching time. Please see MDM section and the rest of the note for further information on patient assessment and treatment. Differential Diagnosis Differential Diagnosis: Hyponatremia, hypomagnesemia, hypokalemia, facial fracture, cervical spine fracture, subdural hematoma, subarachnoid hemorrhage, alcohol withdrawal Vital Signs Vital Signs: Vital Signs Temperature 97.6 F 12/14/24 13:24 Pulse Rate 77 12/14/24 13:24 Respiratory Rate 14 12/14/24 13:24 Blood Pressure 113/84 12/14/24 13:24 Pulse Oximetry 97 12/14/24 13:24 Oxygen Delivery Room Air 12/14/24 13:24 Temperature 97.6 F 12/14/24 13:24 Pulse Rate 77 12/14/24 13:24 Respiratory Rate 14 12/14/24 13:24 Blood Pressure 113/84 12/14/24 13:24 Pulse Oximetry 97 12/14/24 13:24 Oxygen Delivery Room Air 12/14/24 13:24 Lab Data Lab results reviewed: Yes I reviewed the patient's lab results. 12/14/24 13:44 12/14/24 15:08 Labs: Lab Results 12/14/24 12/14/24 Range/Units 13:44 15:08 WBC 10.2 H (4.5-10.0) K/mm3 RBC 3.15 L (4.6-6.20) M/mm3 Hgb 9.9 L D (14.0-18.0) g/dL Hct 26.8 L (42.0-52.0) % MCV 85.1 (80-100) fl MCH 31.4 (26-34) pg MCHC 36.9 H (32-36) g/dl RDW 15.7 H (11.5-14.5) % Plt Count 222 (150-375) k/mm3 MPV 10.2 (7.4-10.4) fl Immature Gran % (Auto) 4.1 H (0-0.5) % Neut % (Auto) 65.8 (45.5-73.1) % Lymph % (Auto) 12.5 L (18.3-44.2) % [place] % (Auto) 17.0 H (2.6-8.5) % Eos % (Auto) 0.5 (0-4.4) % Baso % (Auto) 0.1 L (0.2-1.2) % Lymph # (Auto) 1.27 (0.9-3.2) K/mm3 [place] # (Auto) 1.7 H (0.1-0.6) K/mm3 Eos # (Auto) 0.1 (0-0.3) K/mm3 Baso # (Auto) 0.0 (0.0-0.1) K/mm3 Abs Immat Gran (auto) 0.42 H (0.00-0.031) K/mm3 Absolute Neuts (auto) 6.7 (1.3-6.7) K/mm3 Absolute Nucleated RBC 0.030 H (0.0-0.012) K/mm3 Nucleated RBC % 0.3 H (0.0-0.2) % PT 12.7 (11.1-14.7) Seconds INR 0.9 APTT 22.6 (22.3-36.8) Seconds Sodium 111 L* (137-145) mmol/L Potassium 2.6 L* (3.4-5.0) mmol/L Chloride 59 L (98-107) mmol/L Carbon Dioxide > 40 H (22-30) mmol/L Anion Gap (4-12) mmol/L BUN 23 H D (9-20) mg/dL Creatinine 1.00 (0.7-1.3) mg/dL Estim Creat Clear Calc 78 ml/min Estimated GFR > 60 (59 - ) Glucose 99 (65-110) mg/dL Calcium 8.5 (8.4-10.2) mg/dL Total Bilirubin 2.4 H (0.2-1.3) mg/dL AST 85 H (17-59) U/L ALT 112 H (6-50) U/L Alkaline Phosphatase 98 (38-126) U/L Total Protein 6.8 (6.3-8.2) g/dL Albumin 3.9 (3.5-5.1) g/dL Imaging Data Radiologist's impression: Impressions Head CT 12/14/24 15:02 IMPRESSION: Tiny focus of acute small volume subdural hemorrhage over the left anterior hemisphere, measuring up to 2 mm in thickness. Small, thin, left hemispheric chronic subdural versus cystic hygroma, measuring up to 3 mm in thickness. Results reported telephonically to Dr. Jaimes by Dr. Araiza at 3:08 PM on . Critical Care Time Critical Care Time Critical Care Time: Yes Total Critical Care Time: 36 Discharge Plan Discharge Clinical Impression: Acute hyponatremia, Alcohol withdrawal, Acute hypokalemia, Subdural hematoma, acute Patient Disposition: Acute Care Hospital Condition: Serious Patient Language: Macedonian Follow-up/Referrals: UNKNOWN,DOCTOR [Primary Care Provider] -
[2024-12-14] MEDS: LACTATED RINGERS 1,000 ML 999 ML IV CONT (15:21)
--- NOTE | 2024-12-14 15:24 | PC.NURSE ---
Tiffanie C-Collar applied per EDP, Dr. Jaimes
[2024-12-14 15:34] LABS: INR 0.9; Prothrombin Time 12.7 Seconds (11.1-14.7)
[2024-12-14 15:34] LABS: Alanine Aminotransferase 112 U/L (6-50); Albumin Level 3.9 g/dL (3.5-5.1); Alkaline Phosphatase 98 U/L (38-126); Aspartate Amino Transferase 85 U/L (17-59); Bilirubin,Total 2.4 mg/dL (0.2-1.3); Blood Urea Nitrogen 23 mg/dL (9-20); Calcium 8.5 mg/dL (8.4-10.2); Carbon Dioxide > 40 mmol/L (22-30); Chloride 59 mmol/L (98-107); Estimated CRCL calculation 78 ml/min; Estimated Glomerular Filt Rate > 60; Glucose 99 mg/dL (65-110); Potassium 2.6 mmol/L (3.4-5.0); Sodium 111 mmol/L (137-145); Total Protein 6.8 g/dL (6.3-8.2)
[2024-12-14 15:35] LABS: Partial Thromboplastin Time 22.6 Seconds (22.3-36.8)
[2024-12-14] MEDS: KCL 20 MEQ/SW 100 ML 100 ML 50 MEQ IVPB (15:50)
== END 2024-12-14 16:31 | disposition short-term general hospital (02) ==
PROVIDERS: Student in an Organized Health Care Education/Training Program; Emergency Provider Emergency Medicine
DX: S06.5XAA Traumatic subdural hemorrhage with loss of consciousness status unknown, initial encounter (principal); F10.239 Alcohol dependence with withdrawal, unspecified; E87.1 Hypo-osmolality and hyponatremia; E87.6 Hypokalemia; Y90.9 Presence of alcohol in blood, level not specified; W19.XXXA Unspecified fall, initial encounter
CPT/HCPCS: 36415; 70450; 80053; 85025; 85610; 85730; 96365; 99291; J3480; J7120; L0140

== ENCOUNTER 2025-03-14 22:23 | Emergency (ER) | payer SELFPAY ==
--- OUTSIDE RECORDS SUMMARY | 2025-03-14 22:26 | XMS_ITS | Clinical Summary ---
Author Organization [employer] Address [address] [place] [address] Care Team Providers Care Sales Performance Analyst Name Role Phone Kenneth Mcduffie DO Primary Care Provider + Allergies No known active allergies Medications QUEtiapine (SEROquel) 50 mg tabletIndicatio ns:Anxiety state,Alcoholis m in recovery ([facility]) TK 1 T PO QHS. All future fills will be through psychiatry. Only use if on cpap. 30 Tablet 8 Active vortioxetine (Trintellix) 10 mg tablet Take 5 mg by mouth daily. Active gabapentin (NEURONTIN) 300 mg capsule Take 300 mg by mouth 3 times daily. Active lisinopriL (PRINIVIL) 10 mg tablet Take 10 mg by mouth daily. Active pantoprazole (PROTONIX) 20 mg Tablet, Delayed Release (E.C.) Take 20 mg by mouth daily. 3 Active calcium as CARBONATE (TUMS) 500 mg (200 mg elemental) Tablet, Chewable Take 2 Tablets by mouth. 5 Active thiamine (VITAMIN B-1) 100 mg tablet Take 1 Tablet by mouth daily. 5 Active sertraline (ZOLOFT) 25 mg tablet 25 mg. 4 Active ondansetron (ZOFRAN ODT) 4 mg Tablet, Rapid Dissolve Take 4 mg by mouth. 3 Active naltrexone (DEPADE) 50 mg tablet Take 50 mg by mouth daily. Active melatonin 3 mg Tablet Take 3 mg by mouth daily at bedtime. 5 Active clonazePAM (KlonoPIN) 0.5 mg Tablet Active chlordiazePOXID E (LIBRIUM) 5 mg capsule 5 mg. 4 Active chlordiazePOXID E (LIBRIUM) 25 mg capsule Take 25 mg by mouth. 3 Active buPROPion HCL (WELLBUTRIN XL) 150 mg Extended Release 24 hour tablet See Instructions, 90 tablet(s), 2, 2, TAKE 1 TABLET BY MOUTH DAILY, [id number], [id number], Instructions Replace Required Details, 175, cm, 12/25/2021 1057, Height, 92, kg, ... 2 Active thiamine (VITAMIN B-1) 100 mg tablet Take 100 mg by mouth daily. 5 Active multivitamin (Multiple Vitamins) tablet Take 1 Tablet by mouth daily. 5 Active Active Problems Problem Noted Date Diagnosed [...] state 11/25/2011 05/24/2019 ETOH abuse 11/25/2011 06/27/2012 Encounters Date Type Department Care Team Description 03/06/2025 External Device Data ST[facility] ABSTRACTION Provider, Abstract 02/26/2025 External Device Data [facility] ABSTRACTION Provider, Abstract 01/29/2025 External Device Data [facility] ABSTRACTION Provider, Abstract 01/16/2025 External Device Data [facility] ABSTRACTION Provider, Abstract 01/02/2025 External Device Data [facility] ABSTRACTION Provider, Abstract 12/25/2024 External Device Data [facility] ABSTRACTION Provider, Abstract 12/25/2024 External Device Data [facility] ABSTRACTION Provider, Abstract 12/25/2024 External Device Data [facility] ABSTRACTION Provider, Abstract 12/23/2024 10:15 AM CDT [facility] [place] [address] [facility] CRISTIAN Manley, Ainsley Strauss, SAMUEL IV infiltrate, initial encounter (Primary Dx); Cellulitis of left upper extremity from Last 3 Months Immunizations Immunization Administration Dates Next Due (ADACEL/BOOSTRIX)(10 [...] Smoking Tobacco: Every Day Cigarettes 2 20 Alcohol Use Standard Drinks/Week Comments Never 0 [...] on file 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 Gender Identity Not on file Sexual Orientation Not on file Occupation Industry Job Start Date Job End Date Not on file Not on file Not on file Not on file Last Filed Vital Signs Vital Sign Reading Time Taken Comments Blood Pressure 113/72 12/23/2024 10:19 AM CDT Pulse 102 12/23/2024 10:19 AM CDT Temperature 36.9 C (98.5 F) 12/23/2024 10:19 AM CDT Respiratory Rate 18 12/23/2024 10:19 AM CDT Oxygen Saturation 99% 12/23/2024 10:19 AM CDT Inhaled Oxygen Concentration - - Weight 93.9 kg (207 lb) 12/23/2024 10:19 AM CDT Height 175.3 cm (5' 9) 12/23/2024 10:19 AM CDT Body Mass Index 30.57 12/23/2024 10:19 AM CDT Plan of Treatment Health Maintenance Due Date Last Done Comments Pre-Diabetes and Diabetes Screening 1974 HEPATITIS B VACCINES (1 of 3 - 19+ 3-dose series) 1993 COLORECTAL SCREENING 2019 Colorectal Cancer Screening 2019 FIT-DNA Q 3 years 2019 FIT/FOBT Q 1 year 2019 Flex Sig/CT Colonography Q 5 years 2019 DTAP/TDAP/TD VACCINES (2 - T d or Tdap) 12/26/2023 12/25/2013 Lung Cancer Screening 2024 ZOSTER VACCINE (1 of 2) 2024 INFLUENZA VACCINE (#1) 2024 7, 03/16/2015, 02/13/2014 COVID-19 Vaccine ( season) 01/14/202507/2020, 12/10/2020 Insurance [employer] OA PLUS [facility] ad[employer]q CHOICE Advance Directives For more information, please contact: [phone] * Full Code (Latest Code Status on File) Date Activated Date Inactivated Comments 12/01/2022 2:55 PM 12/02/2022 11:15 AM * Full Code Date Activated Date Inactivated Comments 05/23/2019 1:47 PM 05/24/2019 3:13 PM Care Teams Sales Performance Analyst Relationship Specialty [place] [address] [place] [address] PCP - General Family Practice 12/01/22
--- OUTSIDE RECORDS SUMMARY | 2025-03-14 22:26 | XMS_ITS | Encounter Summary ---
Author Organization [facility] Address [address] [place] [address] Care Team Providers Care Rotary Lithographic Press Operator Name Role Phone Kenneth Mcduffie DO Primary Care Provider + Encounter Details Date Type Department Care Team (Late st Contact Info) Description 01/30/2002 Outpatient Historical [facility] Medicine [address] [place] [phone] Gurinder Elkins DO [address] [facility] [place] [phone] Social History Tobacco Use Types Packs/Day Years Used Date Smoking Tobacco: Never Assessed Sex and Gender Information Value Date Recorded Sex Assigned at Not on file 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
--- OUTSIDE RECORDS SUMMARY | 2025-03-14 22:26 | XMS_ITS | Data Portability ---
Author Organization [place] [facility] (57) Address [address] [place] [address] Care Team Providers Care Lard Maker Name Role Phone ANÍBAL LAST Referring Provider Assessment No assessment recorded. Plan of Treatment Reminders Order Date Submit Date Provider Last Modified By Organization Details Last Modified Time Details Appointments None record ed. Lab None record ed. Referral None record ed. Procedures None record ed. Surgeries None record ed. Imaging None record ed. Medication Orders None record ed. Patient TargetsNo targets recorded. Patient InstructionsNo instructions recorded. Reason for Referral None Reported. Medical Equipment None Reported. Medications Name Sig Start Date Stop Date Status Note LastModified by Organization Details LastModified Time naltrexone 50 mg tablet active Not Available Not Available No t Available clonazepam 0.5 mg tablet active Not Available Not Availabl e Not Available Vitals None Recorded Social History None recorded. Functional Status None recorded. Mental Status None recorded. Family History Nothing Reported. Medical History No medical history recorded. Past Encounters Encounter ID Performer Location Encounter Start Date Encounter Closed Date Diagnosis/Indication Diagnosis SNOMED-CT Code Diagnosis ICD10 Code Diagnosis IMO Codes Diagnosis Note [id number] [facility] ([facility] [address] [place] [address] 11/30/2016 10:46:12 11/30/2016 10:53:11 Obstructive sleep apnea of adult 2058003637 103 G47.33 Health Concerns Section Related Observation LastModified by Organization Detai ls LastModified Time None Recorded Concern Status LastModified by Organization Details LastModified Time None Recorded Advance Directives Directive None Recorded Payers Insurance Date Sequence Insurance Name Policy Number Policy Anne Covered Member ID Anne Member ID Guarantor Name 11/30/2016 1 [facility]) [id number] Juan Morales [id number] Juan Morales
--- OUTSIDE RECORDS SUMMARY | 2025-03-14 22:26 | XMS_ITS | Clinical Summary ---
Author Organization [facility] Virtual Care Address [address] [place] [address] Phone Care Team Providers Care Vegetable Grower Name Role Phone Kenneth Mcduffie DO Primary Care Provider [phone] Allergies No known active allergies Medications pantoprazole [...] nausea or vomiting 20 tablet 3 Active Encounters Date Type Department Care Team Description 02/26/2025 6:39 PM CDT - 02/26/2025 11:59 PM CDT Hospital Encounter [facility] Lab [address] [place] [address] Discharge Disposition: Discharge to home or self care from Last 3 Months Medical History Medical History Date Comments Hypertension Social History Tobacco Use Types Packs/Day Years Used Date Smoking Tobacco: Every Day Cigarettes Tobacco Cessation:Ready to Q uit: Not Asked; Counseling Given: Not Answered Personal Safety Answer Date Recorded Getting School Help Needed Denies 05/20 Sex and Gender Information Value Date Recorded Sex Assigned at Not on file Legal Sex Male 2:33 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 Gender Identity Not on file Sexual Orientation Not on file Obstetrics History Last Filed Vital Signs Vital Sign Reading Time Taken Comments Blood Pressure 120/70 07/20/2022 8:00 PM CHANNEL LIP STIFFENER INSOLES Pulse 97 07/20/2022 9:05 PM CHANNEL LIP STIFFENER INSOLES Temperature 36.9 C (98.5 F) 07/20/2022 4:40 PM CHANNEL LIP STIFFENER INSOLES Respiratory Rate 22 07/20/2022 8:45 PM CHANNEL LIP STIFFENER INSOLES Oxygen Saturation 98% 07/20/2022 9:05 PM CHANNEL LIP STIFFENER INSOLES Inhaled Oxygen Concentration - - Weight 93.9 kg (207 lb) 07/20/2022 4:40 PM CHANNEL LIP STIFFENER INSOLES Height 175.3 cm (5' 9) 07/20/2022 4:40 PM CHANNEL LIP STIFFENER INSOLES Body Mass Index 30.57 07/20/2022 4:40 PM CHANNEL LIP STIFFENER INSOLES Plan of Treatment Health Maintenance Due Date Last Done Comments Colon Cancer Screening-Colonoscopy 1974 Depression Screening 1974 Hepatitis C Screening 1974 Prostate Cancer Screening-PSA 1974 Hepatitis B Screening 1992 Regular Well Visit/Exam 18-64 1992 Pneumococcal vaccine <65 (1 of 2 - PCV) 1993 DTaP/Tdap/Td Vaccine (2 - Td or Tdap) 12/26/2023 12/25/2013 Zoster Vaccine (1 of 2) 2024 Covid-19 Vaccine (3 - 2024-2 6 season) 2025 01/16/2021, 12/10/2020 Influenza Vaccine (#1) 2025 0, 03/30/2019, 03/01/2018, Additional history exists Procedures Procedure Name Priority Date/Time Associated Diagnosis Comments EGFR Routine 02/26/2025 4:43 PM CDT CBC WITHOUT DIFFERENTIAL Routine 02/26/2025 4:43 PM CDT COMPREHENSIVE METABOLIC PANEL Routine 02/26/2025 4:43 PM CDT from Last 3 Months Results * eGFR (02/26/2025 4:43 PM CDT) eGFR >90 >=60 mL/min/1. 73 m2 Comment: Interpretive Data Reference Interval Normal >/= 90 mL/min/1.73m2 Mildly decreased* 60 - 89 mL/min/1.73m2 Mildly to moderately decreased 45 - 59 mL/min/1.73m2 Moderately to severely decreased 30 - 44 mL/min/1.73m2 Severely decreased 15 - 29 mL/min/1.73m2 Kidney Failure < 15 mL/min/1.73m2 *Relative to young adult level Estimated glomerular filtration rate is determined by the 2020 CKD-EPI equation recommended by the National Kidney Foundation (A Unifying Approach to GFR Estimation: Recommendations of the NKF-ASK Task Force on Reassessing the Inclusion of Race in Diagnosing Kidney Disease, JASN 2020). The CKD-EPI equation should not be used for patients with unstable renal function and has not been validated in children and those over 70. Current interpretive data was last reviewed 2021. Blood 02/26/2025 4:43 PM CDT 02/26/2025 7:51 PM CDT us Whit Ybarra PANTRY GOODS WORKER LAB BLOOD ORDERABLES Final R esult [facility] [address] [facility] Department [place] [address] * (ABNORMAL) CBC without differential (02/26/2025 4:43 PM CDT) WBC 6.00 3.80 - 9.90 K/cumm Hgb 9.3(L) 13.0 - 17.5 g/dL [facility] Hct 32.0(L) 38.9 - 50.3 % [facility] Plt 118(L) 150 - 400 K/cumm [facility] MPV 12.0 9.1 - 12.3 fL [facility] RBC 4.06(L) 4.30 - 5.80 M/cumm [facility] MCV 78.8(L) 81.3 - 96.4 fL [facility] MCH 22.9(L) 27.1 - 33.3 pg [facility] MCHC 29.1(L) 32.3 - 35.7 g/dL [facility] RDW CV 19.0(H) 11.1 - 14.9 % [facility] RDW SD 53.1(H) 35.7 - 48.1 fL [facility] NRBC abs 0.00 0.00 - 0.01 K/cumm [facility] Blood 02/26/2025 4:43 PM CDT 02/26/2025 7:52 PM CDT Whit Ybarra PANTRY GOODS WORKER LAB BLOOD ORDERABLES Final R esult [facility] [address] [facility] Department [place] [address] * (ABNORMAL) Comprehensive metabolic panel (02/26/2025 4:43 PM CDT) Sodium 141 135 - 145 mmol/L Potassium, pl 3.5 3.3 - 4.9 mmol/L [facility] Chloride 106 97 - 110 mmol/L [facility] CO2 22 22 - 32 mmol/L [facility] Anion gap 13 2 - 15 mmol/L [facility] BUN 15 6 - 25 mg/dL [facility] Creatinine 0.84 0.80 - 1.30 mg/dL [facility] Glucose 98 70 - 199 mg/dL [facility] Comment: Interpretive Data Fasting glucose >/= 126 mg/dl is diagnostic for diabetes. Fasting is defined as no caloric intake for at least 8 hours. Fasting glucose between 100 mg/dl to 125 mg/dl is diagnostic of prediabetes. In a patient with classic symptoms of hyperglycemia or hyperglycemic crisis, a random glucose >/= 200 mg/dl is diagnostic for diabetes. In the absence of unequivocal hyperglycemia, results should be confirmed by repeat testing. The classification and Diagnosis of Diabetes Diabetes Care 202; 46: S19-S40. Current interpretive data was last revised 2022. Calcium 8.5 8.5 - 10.3 mg/dL [facility] Bilirubin, total 0.4 0.1 - 1.2 mg/dL [facility] Protein, pl 6.3(L) 6.5 - 8.5 g/dL [facility] Albumin 3.5 3.5 - 5.0 g/dL [facility] Alk phos 109 40 - 130 Units/L [facility] ALT 55 7 - 55 Units/L [facility] AST 51(H) 10 - 50 Units/L [facility] Blood 02/26/2025 4:43 PM CDT 02/26/2025 7:51 PM CDT Whit Ybarra PANTRY GOODS WORKER LAB BLOOD ORDERABLES Final R esult [facility] [address] [facility] Department [place] [address] from Last 3 Months Insurance [employer] BLUE ACC CHOICE OOS [employer] Care Teams Vegetable Grower Relationship Specialty Start Date End Date Kenneth Mcduffie DO PCP - General Family Medicine 07/20/22
[2025-03-14 22:38] VITALS: BP 150/109; PULSE 113; RESP 18; TEMP 36.8; O2SAT 100
--- OUTSIDE RECORDS SUMMARY | 2025-03-14 23:29 | XMS_ITS | Clinical Summary ---
Author Organization [employer] Address [address] [place] [address] Care Team Providers Care Tape Folding Machine Operator Name Role Phone Kenneth Mcduffie DO Primary Care Provider + Allergies No known active allergies Medications QUEtiapine (SEROquel) 50 mg tabletIndicatio ns:Anxiety state,Alcoholis m in recovery ([facility]) TK 1 T [...] BY MOUTH DAILY, [id number], [id number], Instructions Replace Required Details, 175, cm, [...] Abstract 12/23/2024 10:15 AM CDT [facility] [place] [address] [facility] CRISTIAN Manley, Ainsley Strauss, SAMUEL IV infiltrate, [...] on file 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 Gender Identity Not on file Sexual Orientation [...] COVID-19 Vaccine ( season) 01/14/202507/2020, 12/10/2020 Insurance [employer] OA PLUS [facility] [place] CHOICE Advance Directives For more information, please contact: [phone] * Full Code (Latest Code Status on File) Date Activated Date Inactivated Comments 12/01/2022 2:55 PM 12/02/2022 11:15 AM * Full Code Date Activated Date Inactivated Comments 05/23/2019 1:47 PM 05/24/2019 3:13 PM Care Teams Tape Folding Machine Operator Relationship Specialty [place] [address] [place] [address] PCP - General Family Practice 12/01/22
--- OUTSIDE RECORDS SUMMARY | 2025-03-14 23:29 | XMS_ITS | Encounter Summary ---
Author Organization [facility] Address 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
--- OUTSIDE RECORDS SUMMARY | 2025-03-14 23:29 | XMS_ITS | Clinical Summary ---
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 Gender Identity Not on file Sexual Orientation Not on file Obstetrics History Last Filed Vital Signs Vital Sign Reading Time Taken Comments Blood Pressure 120/70 07/20/2022 8:00 PM HAZMAT TRUCK DRIVER Pulse 97 07/20/2022 9:05 PM HAZMAT TRUCK DRIVER Temperature 36.9 C (98.5 F) 07/20/2022 4:40 PM HAZMAT TRUCK DRIVER Respiratory Rate 22 07/20/2022 8:45 PM HAZMAT TRUCK DRIVER Oxygen Saturation 98% 07/20/2022 9:05 PM HAZMAT TRUCK DRIVER Inhaled Oxygen Concentration - - Weight 93.9 kg (207 lb) 07/20/2022 4:40 PM HAZMAT TRUCK DRIVER Height 175.3 cm (5' 9) 07/20/2022 4:40 PM HAZMAT TRUCK DRIVER Body Mass Index 30.57 07/20/2022 4:40 PM HAZMAT TRUCK DRIVER Plan of Treatment Health Maintenance Due Date [...] 02/26/2025 7:51 PM CDT us Whit Ybarra MOLD STRIPPER LAB BLOOD ORDERABLES Final R esult [facility] [address] [facility] Department [place] [address] * (ABNORMAL) CBC without differential (02/26/2025 4:43 PM CDT) WBC 6.00 3.80 - 9.90 K/cumm Hgb 9.3(L) 13.0 - 17.5 g/dL [facility] Hct 32.0(L) 38.9 - 50.3 % [facility] Plt 118(L) 150 - 400 K/cumm [facility] MPV 12.0 9.1 - 12.3 fL [facility] RBC 4.06(L) 4.30 - 5.80 M/cumm [facility] MCV 78.8(L) 81.3 - 96.4 fL [facility] MCH 22.9(L) 27.1 - 33.3 pg [facility] MCHC 29.1(L) 32.3 - 35.7 g/dL [facility] RDW CV 19.0(H) 11.1 - 14.9 % [facility] RDW SD 53.1(H) 35.7 - 48.1 fL [facility] NRBC abs 0.00 0.00 - 0.01 K/cumm [facility] Blood 02/26/2025 4:43 PM CDT 02/26/2025 7:52 PM CDT Whit Ybarra MOLD STRIPPER LAB BLOOD ORDERABLES Final R esult [facility] [address] [facility] Department [place] [address] * (ABNORMAL) Comprehensive metabolic panel (02/26/2025 4:43 PM CDT) Sodium 141 135 - 145 mmol/L Potassium, pl 3.5 3.3 - 4.9 mmol/L [facility] Chloride 106 97 - 110 mmol/L [facility] CO2 22 22 - 32 mmol/L [facility] Anion gap 13 2 - 15 mmol/L [facility] BUN 15 6 - 25 mg/dL [facility] Creatinine 0.84 0.80 - 1.30 mg/dL [facility] Glucose 98 70 - 199 mg/dL [facility] Comment: Interpretive Data Fasting glucose [...] 2022. Calcium 8.5 8.5 - 10.3 mg/dL [facility] Bilirubin, total 0.4 0.1 - 1.2 mg/dL [facility] Protein, pl 6.3(L) 6.5 - 8.5 g/dL [facility] Albumin 3.5 3.5 - 5.0 g/dL [facility] Alk phos 109 40 - 130 Units/L [facility] ALT 55 7 - 55 Units/L [facility] AST 51(H) 10 - 50 Units/L [facility] Blood 02/26/2025 4:43 PM CDT 02/26/2025 7:51 PM CDT Whit Ybarra MOLD STRIPPER LAB BLOOD ORDERABLES Final R esult [facility] [address] [facility] Department [place] [address] from Last 3 Months Insurance [employer] BLUE ACC CHOICE OOS [employer] Care Teams Bowl Topper Relationship Specialty Start Date End Date Kenneth Mcduffie DO PCP - General Family Medicine 07/20/22
--- NOTE | 2025-03-14 23:35 | ED.GENADULT ---
HPI - General Adult General Chief complaint: Unspecified Stated complaint: ETOH/PTSD-wants to go to rehab Time Seen by Provider: 03/14/25 23:06 Source: patient and old records reviewed Mode of arrival: EMS Limitations: no limitations History of Present Illness HPI narrative: Patient is a 49 y/o male who presents to the ED via EMS with report of alcohol dependence. Patient reports history of chronic alcoholism. States he was recently in a rehab facility, but left the facility and began drinking again. He is currently drinking 2 fifths per day. Reports he drinking a 5th of fireball and a 5th of [employer] vodka today. Reports he is wanting to get back into rehab. Has previously been on Librium. Patient is intermittently tearful and states that his family has given up on him. He denies any suicidal or homicidal ideation. Was recently evaluated in our facility for suicidal ideation by crisis team. Related Data Allergies Allergy/AdvReac Type Severity Reaction Status Date / Time No Known Allergies Allergy Verified 03/14/25 22:25 Review of Systems Review of Systems: All systems reviewed & are unremarkable except as noted in HPI. All systems reviewed & are unremarkable except as noted in HPI and below Exam Narrative: GENERAL: Mildly disheveled, well-nourished, non-toxic, in no acute distress. HEAD: Normocephalic, atraumatic. RESPIRATORY: Airway patent, respirations nonlabored. Clear to auscultation bilaterally, no rales, rhonchi, wheezing. CARDIOVASCULAR: Regular rate and rhythm without murmurs, rubs, or gallops. MUSCULOSKELETAL: Moves all extremities. No gross deformities. SKIN: Warm, dry, normal color. NEURO: A&O X3. Speech clear. Cranial nerves II-XII grossly intact. Steady gait. No ataxic movements. No tremors. PSYCHIATRIC: Labile mood, intermittently tearful, depressed affect. Cooperative with interaction. Course Vital Signs Vital signs: Vital Signs Temperature 98.2 F 03/14/25 22:38 Pulse Rate 113 H 03/14/25 22:38 Respiratory Rate 18 03/14/25 22:38 Blood Pressure 150/109 H 03/14/25 22:38 Pulse Oximetry 100 03/14/25 22:38 Temperature 98.2 F 03/14/25 22:38 Pulse Rate 113 H 03/14/25 22:38 Respiratory Rate 18 03/14/25 22:38 Blood Pressure 150/109 H 03/14/25 22:38 Pulse Oximetry 100 03/14/25 22:38 Medical Decision Making MDM Narrative Medical decision making narrative: Patient presented to ED with chronic alcoholism, wanting to get back into rehab. Admits to drinking two fifths of ETOH today. Patient was initially recorded as being tachycardic upon arrival to the ED but at the time of my evaluation, heart rate in the 90s. Blood pressure stable. He is in no acute distress, does not appear frankly intoxicated, neurologically intact, answering all of my questions, ambulating with a steady gait, denying any SI or HI. He is not exhibiting any signs of acute alcohol withdrawal at this time. Discussed prescribing patient Librium to avoid withdrawal symptoms until he can get back into his rehab facility. Advised he will need to contact the rehab facility 1st thing tomorrow morning. Patient asking for something to eat. He was given a sandwich/soda. Prior to any further evaluation/workup, patient was witnessed ambulating on the facility. Ambulating with a steady gait. This will be considered elopement. Vital Signs Vital Signs: Vital Signs Temperature 98.2 F 03/14/25 22:38 Pulse Rate 113 H 03/14/25 22:38 Respiratory Rate 18 03/14/25 22:38 Blood Pressure 150/109 H 03/14/25 22:38 Pulse Oximetry 100 03/14/25 22:38 Temperature 98.2 F 03/14/25 22:38 Pulse Rate 113 H 03/14/25 22:38 Respiratory Rate 18 03/14/25 22:38 Blood Pressure 150/109 H 03/14/25 22:38 Pulse Oximetry 100 03/14/25 22:38 Discharge Plan Discharge Clinical Impression: Alcohol dependence with acute alcoholic intoxication without complication Patient Disposition: Elopement After Seen by Prov Patient Language: Kinyarwanda Follow-up/Referrals: UNKNOWN,DOCTOR [Primary Care Provider]
== END 2025-03-14 23:49 | disposition left against medical advice (07) ==
PROVIDERS: Emergency Provider Physician Assistant
DX: F10.220 Alcohol dependence with intoxication, uncomplicated (principal); Y90.9 Presence of alcohol in blood, level not specified
CPT/HCPCS: 99281